=== PATIENT | male | born 1960 | race Caucasian/White ===

== ENCOUNTER 2016-08-07 18:48 | Inpatient (IN) | payer OTHER ==
[~2016-08-07] VITALS: Ht 180.3 cm; Wt 121.4 kg
--- NOTE | ~2016-08-07 | HEMODYNAMI ---
PATIENT:JOE SANCHEZ MEDICAL RECORD: [id number] : 62 LOCATION:[place] [address] ADMISSION DATE: 08/07/16 Generatedon:08/20/201611:05 Patient name: JOE SANCHEZ Patient #: [id number] SSN: : 1960 Date of study: 08/20/2016 Page: Of Hemodynamic Procedure Report Patient Data Patient Demographics Procedure consent was obtained First Name: JOE Gender: Male Last Name: LAURA : 1960 Middle Initial: ALLAN Age: 56 year(s) Patient #: [id number] Race: Unknown Additional ID: [id number] Contact details [address]: [address] [place] [address] State: [place] City: [place] Zip code: [address] Admission Admission Data Admission Date: 08/07/2016 Admission Time: 22:32 Room #: D.2120 Height (in.): 71 BSA: 2.46 (m2) Height (cm.): 180.34 BMI: 40.03 (kg/m2) Weight (lbs.): 287 Weight (kg.): 130.18 Procedure Procedure Types Cath Procedure Peripheral Cath Diagnostic Procedure Cath Peripheral Liver Liver Biopsy T-Cath Procedure Description Procedure Date Procedure Date: 08/20/2016 Procedure Start Time: 10:13 Procedure Staff Name Function Arcenio Avendaño MD Performing Physician Vincent Landeros RT Scrub Katie Blackwood RN Nurse Lynnette Quintana RT Key Worker Lynnette Quintana RT Monitor Procedure Data Cath Procedure Fluoroscopy Diagnostic fluoroscopy Total fluoroscopy Time: 10 time: 10 min min Diagnostic fluoroscopy Total fluoroscopy dose: dose: 324.8 mGy 324.8 mGy Contrast Material Contrast Material Type Amount (ml) Isovue 300 20 Procedure Medications Medication Administration Route Dosage Versed I.V. 0.5 mg Fentanyl I.V. 25 mcg Oxygen NC 3 l/min Lidocaine 1% added to field 20 Heparin Flush Bag added to field 1 bags (1000units/500ml NS) Versed I.V. 0.5 mg Fentanyl I.V. 25 mcg Oxygen NC 6 l/min Fentanyl I.V. 25 mcg Versed I.V. 0.5 mg Hemodynamics Rest BSA: 2.46 (m2) O2 Consumption: Estimated: 312.56 (ml/min) O2 Consumption indexed : Estimated:127.06 (ml/min/m) Heart Rate: 93 (bpm) Snapshots Pre Cath Intra NCS Post Cath Vital Signs Time Heart Resp SPO2 NIBP (mmHg) Rhythm Pain Sedation Rate (ipm) (%) Status Level (bpm) 9:58:25 90 12 92 170/92(132) NSR 0 (11) 10(A) , No pain 10:02:58 89 14 92 169/91(126) NSR 0 (11) 10(A) , No pain 10:07:28 91 12 92 154/91(124) NSR 0 (11) 10(A) , No pain 10:11:57 90 17 90 144/87(114) NSR 0 (11) 10(A) , No pain 10:16:21 90 9 92 151/88(115) NSR 0 (11) 10(A) , No pain 10:20:49 89 9 92 144/83(107) NSR 0 (11) 10(A) , No pain 10:25:15 89 10 90 147/85(105) NSR 0 (11) 9(A) , No pain 10:29:44 85 11 92 137/75(104) NSR 0 (11) 9(A) , No pain 10:34:06 89 9 91 140/80(100) NSR 0 (11) 9(A) , No pain 10:38:26 90 9 92 128/85(101) NSR 0 (11) 9(A) , No pain 10:42:44 87 10 92 139/85(109) NSR 0 (11) 9(A) , No pain 10:47:08 88 9 93 137/79(101) NSR 0 (11) 9(A) , No pain 10:51:31 89 9 92 147/82(102) NSR 0 (11) 9(A) , No pain 10:55:55 88 12 92 137/85(105) NSR 0 (11) 9(A) , No pain 11:00:19 87 12 93 134/79(104) NSR 0 (11) 10(A) , No pain 11:04:39 87 24 94 127/82(97) NSR 0 (11) 10(A) , No pain Medications Time Medication Route Dose Verified Delivered Reason Notes Effe ctiveness by by 9:58:00 Oxygen NC 3 Katie Katie Per l/min King MIKI Blackwood RN protocol 9:58:10 Lidocaine 1% added 20ml Katie Katie for local to vial King MIKI Blackwood RN anesthetic field 9:58:20 Heparin Flush added 1 Katie Katie used for Bag to bags King MIKI Blackwood horse riding coach or instructor (1000units/500ml field NS) 10:12:01 Oxygen NC 6 Katie Katie Per l/min King MIKI Blackwood RN protocol 10:12:50 Versed I.V. 0.5 Katie Katie for mg King MIKI Blackwood RN sedation 10:12:50 Fentanyl I.V. 25 Katie Katie for mcg King MIKI Blackwood RN sedation 10:17:46 Versed I.V. 0.5 Katie Katie for mg King MIKI Blackwood RN sedation 10:17:51 Fentanyl I.V. 25 Katie Katie for mcg King MIKI Blackwood RN sedation 10:44:11 Fentanyl I.V. 25 Katie Katie for mcg King MIKI Blackwood RN sedation 10:44:23 Versed I.V. 0.5 Katie Katie for mg King MIKI Blackwood RN sedation Procedure Log Time Note 9:45:14 Patient Weight : 287 lbs 9:45:16 Patient Height : 71 inches 9:45:50 Time tracking: Regular hours 9:46:03 - 9:46:14 Use device set IR Diagnostic 9:46:15 Sterile Angiographic Pack opened to sterile field. 9:46:16 Bag Decanter opened to sterile field. 9:46:59 [id number] 8FR CATH DRAIN TRAY opened to sterile field. 9:47:50 H&P Date Dictated: 08/20/2016 Within 30 days and on chart.. 9:47:53 Pre-procedure instructions explained to patient. 9:47:54 Pre-op teaching completed and patient verbalized understanding. 9:47:58 Family in waiting room. 9:48:00 Patient NPO since Midnight. 9:48:15 Is the patient allergic to Iodine/contrast media? No. 9:48:19 Is patient on blood thinner?Yes 9:48:24 Patient diabetic? Yes. 9:55:32 KIT LIVER ACCESS BIOPSY W/19GX6 opened to sterile field. 9:56:19 KIT, TRANSJUGULAR LIVER ACCESS R opened to sterile field. 9:56:31 - 9:56:38 Plan of Care:Hemodynamics will remain stable., Cardiac rhythm will remain stable., Comfort level will be maintained., Respiratory function will remain adequate., Patient/ family verbilizes understanding of procedure., Procedure tolerated without complication., Recovers from procedure without complications.. 9:56:46 Patient received from [place] II to IR Alert and oriented. Tansferred to table in Supine position. 9:56:48 Correct patient and procedure confirmed by team. 9:56:50 Signed procedure consent form obtained from patient. 9:56:51 ECG and BP/O2 sat monitors applied to patient. 9:56:52 Vital chart was started 9:56:54 Baseline sample Acquired. 9:56:55 Full Disclosure recording started 9:56:56 - 9:57:03 ----Pre-sedation anethsthesia assessment.---- 9:57:07 Previous problem with sedation/anesthesia? No ? 9:57:10 Snore? Yes 9:57:12 Sleep apnea? Yes 9:57:27 Deviated septum? No 9:57:29 Opens mouth fully? Yes 9:57:31 Sticks out tongue? Yes 9:57:34 Airway obstruction? No ? 9:57:39 Dentures? No ? 9:57:40 - 9:58:00 Oxygen 3 l/min NC was given by Katie Blackwood RN; Per protocol; 9:58:10 Lidocaine 1% 20ml vial added to field was given by Katie Blackwood RN; for local anesthetic; 9:58:10 IV patent on arrival in right hand with 0.9% NaCl at [facility]. 9:58:20 Heparin Flush Bag (1000units/500ml NS) 1 bags added to field was given by Katie Blackwood RN; used for procedure; 9:58:22 Right abdomen area was prepped with chlora-prep and draped in sterile fashion 9:58:29 Right neck area was prepped with chlora-prep and draped in sterile fashion 9:58:35 Alarms reviewed by Adrienne Rico 9:58:36 Sharps counted by scrub and verified by Jessica 9:58:37 - 10:11:32 Physician arrived 10:12:01 Oxygen 6 l/min NC was given by Katie Blackwood RN; Per protocol; 10:12:04 --------ALL STOP TIME OUT------ 10:12:05 Final Timeout: patient, procedure, and site verified with staff and physician. All members of the team are in agreement. 10:12:24 Right neck site verified by team. 10:12:31 Right abdomen site verified by team. 10:12:36 Physical assessment completed. ASA score P 3 - A patient with severe systemic disease as per Arcenio Avendaño MD. 10:12:42 Sedation plan: IV Moderate Sedation Versed, Fentanyl 10:12:50 Fentanyl 25 mcg I.V. was given by Katie Blackwood RN; for sedation; 10:12:50 Versed 0.5 mg I.V. was given by Katie Blackwood RN; for sedation; 10:13:07 Procedure started. 10:13:15 Local anesthetic to Abdominal area with Lidocaine 1% by Arcenio Avendaño MD.INITIAL ACCESS ONLY 10:16:58 Cook DOC .035 guide wire opened to sterile field. 10:17:46 Versed 0.5 mg I.V. was given by Katie Blackwood RN; for sedation; 10:17:51 Fentanyl 25 mcg I.V. was given by Katie Blackwood RN; for sedation; 10:19:41 PERCUTANEOUS ENTRY 19GA needle opened to sterile field. 10:24:53 unable to obtain fluid on paracentesis 10:27:19 Local anesthetic to right IJ vein with Lidocaine 1% by Arcenio Avendaño MD.ADDITIONAL ACCESS 10:27:21 Venous access obtained using ultrasound guidance. 10:28:[address] .035 145 glide wire opened to sterile field. 10:31:43 Terumo 5FR ANGLED 100CM glide catheter opened to sterile field. 10:44:11 Fentanyl 25 mcg I.V. was given by Katie Blackwood RN; for sedation; 10:44:23 Versed 0.5 mg I.V. was given by Katie Blackwood RN; for sedation; 10:56:24 liver bx obtained 11:00:24 Procedure ended.(Physican Out) 11:00:53 Fluoroscopy time 10.00 minutes. 11:01:04 Flurop Dose total: 324.8 11:01:04 Fluoroscopy dose: 324.8 mGy 11:01:52 Contrast amount:Isovue 300 20ml. 11:02:21 Procedure and supply charges have been captured, reviewed, submitted an d are correct. 11:05:31 Vital chart was stopped Device Usage Item Name Manufacture Quantity Catalog Hospital Part Current Mini mal Lot# / Number Charge Number Stock Stock Serial# Code Sterile Cardinal 1 [id number] 5 Angiographic Health Pack Bag Decanter Microtek 1 [id number] [employer] [id number] [employer] 1 [id number] [id number] 5 8FR CATH DRAIN TRAY KIT LIVER [facility] 1 [id number] [id number] 5 ACCESS BIOPSY W/19GX6 KIT, [facility] 1 [id number] 169958 5 TRANSJUGULAR LIVER ACCESS R [place] DOC .035 [facility] 1 [id number] 748346 [id number] 5 [id number] guide wire PERCUTANEOUS [facility] 1 [id number] 523100 [id number] 5 ENTRY 19GA needle [place] ROADRUNNER [facility] 1 [id number] 828498 5 [id number] .035 145 glide wire Terumo 5FR Terum[employer] 1 [id number] [id number] 4 ANGLED 100CM glide catheter Signature Audit Edroy Stage Time Signature Unsigned Intra-Procedure 08/20/2016 Lynnette Quintana 11:05:28 AM RT(R) Signatures Monitor : Lynnette Quintana RT Signature : Date : Time : [place] [address] [place] [address]
[2016-08-07 19:59] LABS: BASOPHILS 0.3 % (0.0-2.0); EOSINOPHILS 0.1 % (0-7); HEMATOCRIT 54.5 % (42.0-54.0); IMMATURE GRANULOCYTES 0.8 % (0-5); LYMPHOCYTES 19.8 % (15-50); MCH 31.6 pg (26.0-34.0); MCHC 34.9 g/dL (31.0-37.0); MCV 90.5 fL (80.0-100.0); MEAN PLATELET VOLUME 10.9 fL (7.4-10.4); MONOCYTES 9.5 % (2-11); NEUTROPHILS 69.5 % (40-80); PLATELET COUNT 61 10x3/uL (130-400); RBC 6.02 10x6/uL (4.20-6.10); RDW 15.5 % (11.5-14.5); WBC 7.7 10x3/uL (4.8-10.8)
[2016-08-07 20:26] LABS: PLATELET ESTIMATE DECREASED
[2016-08-07 20:27] LABS: ALBUMIN 3.5 g/dL (3.4-5.0); ANION GAP 16.2 mmol/L (8-16); BILIRUBIN - TOTAL 1.24 mg/dL (0.2-1.3); CALCIUM 8.7 mg/dL (8.5-10.1); CARBON DIOXIDE 21.8 mmol/L (21.0-32.0); CREATININE - SERUM 2.1 mg/dL (0.6-1.3); PROTEIN - SERUM 7.7 g/dL (6.4-8.2)
[2016-08-07 21:16] LABS: APTT 42.8 SECONDS (22.8-39.4); INR 1.54 (0.85-1.17); PROTIME 18.5 SECONDS (11.6-15.0)
[2016-08-07 21:17] LABS: D-DIMER-QUANTITATIVE 0.39 ug/mLFEU (0.20-0.54)
[2016-08-07 21:19] LABS: TROPONIN-I 0.069 ng/mL (0.000-0.060)
[2016-08-07 21:35] LABS: APPEARANCE HAZY (CLEAR); BILIRUBIN NEGATIVE (NEGATIVE); COLOR DK YELLOW (YELLOW); EPITHELIAL CELLS RARE /hpf (0-5); GLUCOSE NEGATIVE (NEGATIVE); KETONE NEGATIVE (NEGATIVE); LEUKOCYTE ESTERASE NEGATIVE (NEGATIVE); NITRITE NEGATIVE (NEGATIVE); PROTEIN 2+ mg/dL (NEGATIVE); SPECIFIC GRAVITY 1.015 (1.005-1.020); UROBILINOGEN NORMAL (NORMAL); WHITE CELLS - URINE 0-5 /hpf (0-5)
[2016-08-07 21:41] LABS: UDS - AMPHET NEGATIVE QUAL (NEGATIVE); UDS - BARB NEGATIVE QUAL (NEGATIVE); UDS - BENZO NEGATIVE QUAL (NEGATIVE); UDS - COCAINE NEGATIVE QUAL (NEGATIVE); UDS - METH NEGATIVE QUAL (NEGATIVE); UDS - OPIATE NEGATIVE QUAL (NEGATIVE); UDS - PCP NEGATIVE QUAL (NEGATIVE); UDS - THC NEGATIVE QUAL (NEGATIVE)
[2016-08-07 22:41] LABS: KETONE - SERUM SMALL mg/dL (NEGATIVE)
[2016-08-07 22:42] LABS: AMYLASE - SERUM 62 U/L (25-115); CKMB 3.9 U/L (0.0-3.6); CREATINE KINASE 168 UL (21-232); LIPASE 366 U/L (73-393); THYROID STIMULATING HORMONE 2.53 uIU/mL (0.36-3.74); VALPROIC ACID (DEPAKOTE) 12.6 ug/mL (50.0-100.0)
[2016-08-07 22:43] LABS: TROPONIN-I 0.093 ng/mL (0.000-0.060)
--- NOTE | 2016-08-07 23:25 | NUR ---
ARRIVED TO ROOM 2306 VIA STRETCHER WITH E.R. STAFF. TRANSFERRED OVER VIA SLIDE BOARD WITH 4 ASSISTING. CONNECTED TO CARDIAC MONITORING SYSTEM. SINUS TACHYCARDIA IN THE 100'S ON THE MONITOR. B/P LOW 90'S SYSTOLIC. O2 @ 3LPM/NC. DENIES CHEST PAIN CURRENTLY. REPORTS PAIN ON BOTH SHOULDERS FROM FALL TONIGHT. PUPILS DILATED AT A 6MM AND SLUGGISH TO LIGHT BILATERALLY. STARES OFF INTO THE DISTANCE AND DOES NOT ANSWER QUESTIONS FOR SHORT PERIODS OF TIME. GETS FLUSHED IN THE FACE AND SLIGHTLY CYANITIC TO LOWER EARLOBES. BILATERAL LE'S EDEMA WITH DISCOLORATION. ONE BANDAID NOTED TO EACH LOWER LEG FROM FALLING TONIGHT. 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 SEE ADMISSION ASSESSMENT FOR FURTHER DETAILS. INFORMED OF HOW TO USE CALL LIGHT. VERBALIZED UNDERSTANDING.
[2016-08-07] MEDS ORDERED: FENOGLIDE40 MG PO (23:26)
[2016-08-07] MEDS ORDERED: DEPAKOTE SPRIN125 MG PO (23:26)
[2016-08-07] MEDS ORDERED: FLOVENT DISKU250 MCG INH (23:27)
[2016-08-07] MEDS ORDERED: GINGER500 MG PO (23:28)
[2016-08-07] MEDS ORDERED: GABAPENTIN100 MG PO (23:28)
[2016-08-07] MEDS ORDERED: ABILIFY2 MG PO (23:29)
[2016-08-07] MEDS ORDERED: VENTOLIN/PR2 MG/5 ML PO (23:29)
[2016-08-07 23:30] VITALS: BP 105/77
[2016-08-07] MEDS ORDERED: MYCELEX TROCHE10 MG PO (23:31)
[2016-08-07] MEDS ORDERED: LIPITOR20 MG PO (23:31)
[2016-08-07] MEDS ORDERED: PULMICORT0.25 MG/1 INH (23:31)
[2016-08-07 23:45] VITALS: BP 81/50
[2016-08-07 23:52] VITALS: BP 91/66; BMI 37.4
[2016-08-08] VITALS (32 sets, daily range): BP systolic 84–172; BP diastolic 49–101
--- NOTE | 2016-08-08 00:15 | NUR ---
INCONTINENT OF URINE. SHEETS A DARK LOREN COLOR. PARTIAL BATH GIVEN AND INCONTINENT BRIEF PLACED ON AND HE WEARS THESE AT HOME. SKIN WNL TO POSTERIOR SIDE. PULLED UP IN BED AND REPOSITIONED FOR COMFORT.
--- NOTE | 2016-08-08 00:20 | NUR ---
SPOKE WITH DR. COLBY REGARDING MULTIPLE FALLS. NEW ORDERS RECEIVED.
--- NOTE | 2016-08-08 00:40 | NUR ---
TAKEN OVER TO RAD DEPT FOR CT HEAD WITHOUT CONTRAST VIA BED.
--- NOTE | 2016-08-08 01:00 | NUR ---
[facility] AND RECONNECTED TO CONTINUOUS CARDIAC MONITORING.
--- NOTE | 2016-08-08 01:15 | NUR ---
HERE AND LET IN TO SEE PATIENT. UPDATE GIVEN ON RECENT CT OF HEAD AND AWAITING RESULTS. PATIENT REPORTS THE SHAKING TYPE TREMORS ARE OF NEW ONSET SINCE FALL IN BATHROOM TONIGHT. ALSO REPORTS HIS "EYES WERE BLACK", "COULD NOT SEE HIS IRIS". ALSO DOES REPORT THE NEW ONSET OF STARING OFF IN THE DISTANCE IS NEW FOR HIM. HAS HOME CPAP MACHINE FROM HOME SHE IS RETRIEVING FROM THE VEHICLE. WILL MONITOR.
--- NOTE | 2016-08-08 01:45 | NUR ---
CALLED ER AND INFORMED NEED TO GIVEN RESULTS TO DR. COLBY OF CT HEAD. PERSON ANSWERING PHONE AWARE A OF RESULTS.
--- NOTE | 2016-08-08 02:50 | NUR ---
SPOKE WITH DR. PERDOMO VIA PHONE REGARDING WHETHER TO FOLLOW HEPARIN PROTOCOL FOR HEPARIN GTT. INFORMED TO FOLLOW PROTOCOL. INFORMED OF LACTIC ACID AND TROPONIN LEVEL. WILL MONITOR.
--- NOTE | 2016-08-08 03:45 | NUR ---
REASSESSMENT COMPLETED. SEE ASSESSMENT. LAYING ON RT SIDE. REPORTS PAIN HAS LESSENED SOME TO SHOULDER AREA. READJUSTED B/P CUFF ON LEFT ARM. ANSWERS QUESTIONS APPROPRIATELY. IMMEDIATELY CLOSES EYES WHEN NOT STIMULATED AND CLOSES EYES. NSR ON THE MONITOR. WILL MONITOR.
[2016-08-08 04:21] LABS: BASOPHILS 0.2 % (0.0-2.0); EOSINOPHILS 0.1 % (0-7); HEMATOCRIT 54.3 % (42.0-54.0); HEMOGLOBIN 18.5 g/dL (13.5-17.5); IMMATURE GRANULOCYTES 1.2 % (0-5); LYMPHOCYTES 29.2 % (15-50); MCH 30.3 pg (26.0-34.0); MCHC 34.1 g/dL (31.0-37.0); MCV 88.9 fL (80.0-100.0); MEAN PLATELET VOLUME 10.5 fL (7.4-10.4); MONOCYTES 14.2 % (2-11); NEUTROPHILS 55.1 % (40-80); PLATELET COUNT 66 10x3/uL (130-400); RBC 6.11 10x6/uL (4.20-6.10); RDW 15.9 % (11.5-14.5); WBC 9.4 10x3/uL (4.8-10.8)
[2016-08-08 04:50] LABS: ALBUMIN 3.3 g/dL (3.4-5.0); BILIRUBIN - TOTAL 1.23 mg/dL (0.2-1.3); CALCIUM 8.1 mg/dL (8.5-10.1); CARBON DIOXIDE 22.9 mmol/L (21.0-32.0); PROTEIN - SERUM 7.4 g/dL (6.4-8.2)
[2016-08-08 04:53] LABS: ANION GAP 16.8 mmol/L (8-16); CREATININE - SERUM 2.7 mg/dL (0.6-1.3); POTASSIUM - SERUM 6.7 mmol/L (3.5-5.1); TROPONIN-I 0.888 ng/mL (0.000-0.060)
--- NOTE | 2016-08-08 04:55 | NUR ---
DR. BOWIE RETURNED PAGE. INFORMED OF CRITICAL POTASSIUM, TROPONIN LEVEL, PAIN LEVEL AND WHERE, BUN/CREAT, PLTS LEVEL. ORDERS RECEIVED.
--- NOTE | 2016-08-08 05:35 | NUR ---
PO KAYEXALATE GIVEN ORDERED. TOOK WITHOUT DIFFICULTY. WILL MONITOR.
--- NOTE | 2016-08-08 06:11 | NUR ---
DR. SWANSON MADE AWARE OF RENAL CONSULT VIA PHONE.
[2016-08-08 10:03] LABS: APPEARANCE CLOUDY (CLEAR); BILIRUBIN 1+ (NEGATIVE); COLOR DK YELLOW (YELLOW); GLUCOSE NEGATIVE (NEGATIVE); KETONE NEGATIVE (NEGATIVE); LEUKOCYTE ESTERASE 1+ (NEGATIVE); NITRITE NEGATIVE (NEGATIVE); PROTEIN 3+ mg/dL (NEGATIVE)
[2016-08-08 10:04] LABS: AMORPHOUS SEDIMENT <1+ /lpf (NONE SEEN); BACTERIA MANY /hpf (NONE SEEN); CREATININE - URINE 271.9 mg/dL (30-125); GRANULAR CAST OCC /lpf (NONE SEEN); MUCUS <1+ /lpf (NONE SEEN); RED CELLS - URINE 0-5 /hpf (0-5); WHITE CELLS - URINE 0-5 /hpf (0-5)
[2016-08-08 10:05] LABS: PROTEIN - URINE 2198.8 mg/dL (0.0-11.9)
[2016-08-08 10:40] LABS: ANION GAP 15.7 mmol/L (8-16); CALCIUM 8.4 mg/dL (8.5-10.1)
[2016-08-08 10:46] LABS: POTASSIUM - SERUM 4.7 mmol/L (3.5-5.1)
[2016-08-08 18:34] LABS: POTASSIUM - URINE 45.6 MMOL/L (12.0-62.0)
[2016-08-08 18:40] LABS: CREATININE - URINE 269.5 mg/dL (30-125); PRO/CRE RATIO URINE 8.1 mg/g; PROTEIN - URINE 2196.2 mg/dL (0.0-11.9)
--- NOTE | 2016-08-08 19:15 | NUR ---
REPORT RECIEVED, SHIFT ASSESSMENT COMPLETE, PT IS ALERT AND ORIENTED, ON 3L NC WITH 98% O2 SAT. RHONCHI HEARD IN B/L UPPER LOBES, DIMINISHED IN B/L LOWER LOBES, S1S2, CM-ST, PATENT RIGHT A/C PIV WITH NS INFUSING VIA PUMP, ABDOMEN IS DISTENDED WITH HYPO BS, PATENT F/C WITH DARK UOP, EDEMA NOTED IN ALL EXTREMTIES, ALL PPP, VSS, CALL LIGHT IN REACH
--- NOTE | 2016-08-08 21:15 | NUR ---
NO VISITORS AT THIS TIME, WILL CON'T TO MONITOR
--- NOTE | 2016-08-08 23:16 | NUR ---
REASSESSMENT COMPLETE, PT RESTING AT THIS TIME, WILL CON'T TO MONITOR
--- NOTE | 2016-08-08 23:20 | NUR ---
UPDATE CALLED TO DR.ST YEH, NEW ORDERS RECIEVED
[2016-08-09] VITALS (18 sets, daily range): BP systolic 100–165; BP diastolic 58–101; Ht 180.3 cm; Wt 121.4 kg
--- NOTE | 2016-08-09 01:15 | NUR ---
NO NEEDS NOTED, WILL CON'T TO MONITOR
--- NOTE | 2016-08-09 03:05 | NUR ---
REASSESSMENT COMPLETE, NO CHANGES NOTED, PT RESTING AT THIS TIME, CALL LIGHT IN REACH
[2016-08-09 04:45] LABS: BASOPHILS 0.7 % (0.0-2.0); EOSINOPHILS 0.8 % (0-7); HEMATOCRIT 49.3 % (42.0-54.0); HEMOGLOBIN 16.4 g/dL (13.5-17.5); IMMATURE GRANULOCYTES 0.2 % (0-5); MCHC 33.3 g/dL (31.0-37.0); MCV 90.3 fL (80.0-100.0); MEAN PLATELET VOLUME 11.9 fL (7.4-10.4); MONOCYTES 12.6 % (2-11); NEUTROPHILS 56.7 % (40-80); RBC 5.46 10x6/uL (4.20-6.10)
[2016-08-09 04:48] LABS: PLATELET COUNT 50 10x3/uL (130-400); WBC 6.1 10x3/uL (4.8-10.8)
[2016-08-09 04:52] LABS: ANION GAP 15.2 mmol/L (8-16); CALCIUM 8.2 mg/dL (8.5-10.1); CARBON DIOXIDE 24.4 mmol/L (21.0-32.0); CREATININE - SERUM 1.7 mg/dL (0.6-1.3); POTASSIUM - SERUM 4.6 mmol/L (3.5-5.1)
--- NOTE | 2016-08-09 05:00 | NUR ---
PT RESTING AT THIS TIME, NO NEEDS NOTED, WILL CON'T TO MONITOR
[2016-08-09 09:19] LABS: COMPLEMENT C4 2.4 mg/dL (17.4-52.2)
[2016-08-09 11:05] LABS: ERYTHROCYTE SEDIMENTATION RATE 0 mm/hr (0-20)
--- NOTE | 2016-08-09 15:20 | NUR ---
0800 AM ASSESMENT IS COMPLETE.. SEE FLOW SHEET FOR FINDINGS.. PT IS SLEEPIING WITH HOME CPAP ON.. PIV INFUSNG INTO THE LEFT AC... 0845 DR SWANSON IN TO SEE PT.. 0900 WIHTOUT VISITORS AT THIS TIME.. NPO FOR POSSIBLE CATH 1030 ECHO DONE AT THE BEDSIDE.. PT STAES THAT HE IS HUNGRY.. PERSONAL INJURY LAW SPECIALIST CALLED AND CARDIOLOGY REQUEST RE DIET.. PT NOT SCEDULED FOR CATH TODAY OK FOR MEAL TRAY.. 1100 SANDSWICH TRAY OFFERED TO PT AND PT S FEEDING SELF. 1145 LARGE SOFT STICKY BROWN STOOL IN BEDPAN.. COMPLETE BATH AND LINEN CHANGE DONE.. SALDANA CATH CARE AT THIS TIME.. 1200 LUNCH SERVED AND PT IS FEEDING SELF.. 1330 PIV RE SITED INTO THE RIGHT FOREARM 20 GA.. LEFT AC PIV DCd.. 1330 DR MIRELES IN TO SEE PT.. OK TO TRANSFER TO THE FLOOR.. 1500 WIHTOUT VISITOTRS PPT STATES PAIN IN BACK STATES THAT HE TAKES OXYCODONE AT HOME.. MED NOT ON HOME MED LIST PT STATES TO CALL HIS ..
--- NOTE | 2016-08-09 15:55 | NUR ---
1540 [place] CALLED AND MED RECORDS TO FAX CURRENT MED LIST FOR PT..
[2016-08-09] MEDS ORDERED: ABILIFY20 MG PO (17:03)
[2016-08-09] MEDS ORDERED: BAYER CHEWABLE81 MG PO (17:04)
[2016-08-09] MEDS ORDERED: PULMICORT FLEX90 MCG INH (17:06)
[2016-08-09] MEDS ORDERED: CLOTRIM ANTIFUN15 GM TOPICAL (17:07)
[2016-08-09] MEDS ORDERED: DEPAKOTE ER500 MG PO (17:10)
[2016-08-09] MEDS ORDERED: NEURONTIN 400400 MG PO (17:11)
[2016-08-09] MEDS ORDERED: GLIPIZIDE10 MG PO (17:12)
[2016-08-09] MEDS ORDERED: HYDROCODONE-APA1 TAB PO (17:14)
[2016-08-09] MEDS ORDERED: EUCERIN CREAM120 GM TOPICAL (17:16)
[2016-08-09] MEDS ORDERED: LANTUS INSULIN10 ML SC (17:18)
[2016-08-09] MEDS ORDERED: NIZORAL 2 % CRE15 GM TOPICAL (17:19)
[2016-08-09] MEDS ORDERED: ZESTRIL40 MG PO (17:20)
[2016-08-09] MEDS ORDERED: LATUDA40 MG PO (17:21)
[2016-08-09] MEDS ORDERED: METOPROLOL TAR100 M1 PO (17:21)
[2016-08-09] MEDS ORDERED: OMEPRAZOLE20 M1 PO (17:22)
[2016-08-09] MEDS ORDERED: DITROPAN X10 MG/BOTT PO (17:23)
[2016-08-09] MEDS ORDERED: SYSTANE 0.3-0.4%5 ML EACH EYE (17:24)
[2016-08-09] MEDS ORDERED: EFFEXOR XR150 MG PO (17:25)
--- NOTE | 2016-08-09 18:23 | NUR ---
1645 DR MIRELES CALLED AND UPDATE GIVEN ABOUT MED LLIST.. 1700 DIET SERVED.. 1730 REQUEST PAIN MEDS.. 1800 [facility] VISITORS.. 1820 MEDS ARNOLDO..
--- NOTE | 2016-08-09 19:00 | NUR ---
RECEIVED PATIENT IN BED AWAKE ON HOME CPAP UNIT, ASSESSMENT COMPLETE PER FLOWSHEET. AO X4, EYES PERRLA @ 4MM WITH BRISK RESPONSE AND WHITE SCLERA. PATIENT ON HOME CPAP UNIT @ 3L VIA NASAL MASK, TONGUE IS MIDLINE. S1/S2 NOTED WITH PATIENT NSR ON TELEMETRY, RATE IS REGULAR AND RYTHMIC. LUNG SOUNDS ARE CLEAR BILATERAL UPPER WITH DIMINISHED LOWER, RATE IS RYTHMIC AND REGULAR. ABDOMEN IS ROUND AND SOFT, NON-TENDER TO PALPATION. SALDANA SECURED IN PLACE WITH DARK CONCENTRATED URINE NOTED IN COLLECTION BAG. FULL ROM ALL EXTREMITIES, WITH NO WEAKNESS NOTED IN ARMATURE WINDER REPAIR/PEDAL. ALL PULSES PALPABLE, CAP REFILL <3 SEC. 20G IV NOTED R FA WITH FLUIDS INFUSING, SEE FLOW SHEET. WAITING ON PHARMACY TO DELIVER EFFEXOR, WILL ADMINISTER WHEN AVAILABLE. PATIENT DENIES PAIN OR OTHER NEEDS AT THIS TIME, REPOSITIONED FOR COMFORT. WILL CONTINUE TO MONITOR.
--- NOTE | 2016-08-09 20:39 | NUR ---
Late Entry 1545 TC to ER to ascertain if [facility] patient's admission. No documentation found. TC to Bed Expeditor's office. Spoke w/ Mavis. She states they had been notified. CM provided admitting MD's name and contact phone number also provided ICU contact phone number for information if needed.
--- NOTE | 2016-08-09 21:00 | NUR ---
NO VISITORS AT THIS TIME, PATIENT RESTING IN BED WITH EYES CLOSED ON HOME CPAP. BEDTIME MEDS GIVEN WITH NO DIFFICULTIES, PATIENT RETURNED TO RESTING. PATIENT DENIES PAIN OR OTHER NEEDS AT THIS TIME, WILL CONTINUE TO MONITOR.
--- NOTE | 2016-08-09 23:00 | NUR ---
PATIENT RESTING COMFORTABLY IN BED WITH EYES CLOSED ON HOME CPAP @ 3L. PATIENT NSR ON TELEMETRY, RATE IS RYTHMIC AND REGULAR. PATIENT HAS XFER ORDERS IN PLACE, AWAITING BED ON FLOOR OR [facility]. PATIENT DENIES PAIN OR OTHER NEEDS AT THIS TIME, ALL VSS AND WILL CONTINUE TO MONITOR.
[2016-08-10] VITALS (11 sets, daily range): BP systolic 98–146; BP diastolic 68–98
--- NOTE | 2016-08-10 01:00 | NUR ---
PATIENT IS RESTING IN BED WITH EYES CLOSED ON HOME CPAP @ 3L. BREATHING IS EVEN AND UNLABORED, OXYGEN SAT IS 96%. PATIENT IS NSR ON TELEMETRY, RATE IS RYTHMIC AND REGULAR. PATIENT DENIES PAIN OR OTHER NEEDS AT THIS TIME, ALL VSS AND WILL CONTINUE TO MONITOR.
--- NOTE | 2016-08-10 02:52 | NUR ---
PATIENT C/O PAIN 6/10 GENERALIZED/UPPER SHOULDER, PRN MEDICATION GIVEN AND WILL REASSESS. PATIENT RESTING IN BED WITH EYES CLOSED ON HOME CPAP @ 3L, BREATHING IS EVEN AND UNLABORED. PATIENT DENIES OTHER NEEDS AT THIS TIME, JUST "WANTS TO REST A WHILE". ALL VSS AND WILL CONTINUE TO MONITOR.
[2016-08-10 04:21] LABS: BASOPHILS 0.4 % (0.0-2.0); EOSINOPHILS 1.9 % (0-7); HEMATOCRIT 49.8 % (42.0-54.0); HEMOGLOBIN 16.2 g/dL (13.5-17.5); IMMATURE GRANULOCYTES 0.4 % (0-5); MCH 30.3 pg (26.0-34.0); MCHC 32.5 g/dL (31.0-37.0); MONOCYTES 12.8 % (2-11); NEUTROPHILS 48.5 % (40-80); RBC 5.35 10x6/uL (4.20-6.10); WBC 5.3 10x3/uL (4.8-10.8)
[2016-08-10 04:22] LABS: MCV 93.1 fL (80.0-100.0); PLATELET COUNT 48 10x3/uL (130-400)
[2016-08-10 04:26] LABS: ANION GAP 12.7 mmol/L (8-16); CALCIUM 8.4 mg/dL (8.5-10.1); CARBON DIOXIDE 27.8 mmol/L (21.0-32.0); CREATININE - SERUM 1.6 mg/dL (0.6-1.3); POTASSIUM - SERUM 4.5 mmol/L (3.5-5.1)
--- NOTE | 2016-08-10 05:01 | NUR ---
PATIENT RESTING IN BED WITH EYES CLOSED, BP CUFF MOVED TO PT L BICEP WITH BP READINGS NOW CLOSER TO EXPECTED. HOME CPAP IN USE @ 3L, BREATHING IS EFFORTLESS AND EVEN. PATIENT DENIES PAIN OR OTHER NEEDS AT THIS TIME, ALL VSS AND WILL CONTINUE TO MONITOR.
[2016-08-10 10:20] LABS: ANA REFLEX - ANTICHROMATIN ABS <0.2 AI (0.0-0.9); ANA REFLEX - CENTROMERE B ABS <0.2 AI (0.0-0.9); ANA REFLEX - DBL STRANDED DNA <1 IU/mL (0-9); ANA REFLEX - DIRECT Positive (Negative); ANA REFLEX - JO-1 AB <0.2 AI (0.0-0.9); ANA REFLEX - SCL-70 <0.2 AI (0.0-0.9); ANA REFLEX - SJOGRENS AB SSA <0.2 AI (0.0-0.9); ANA REFLEX - SJOGRENS AB SSB <0.2 AI (0.0-0.9); ANA REFLEX - SMITH AB <0.2 AI (0.0-0.9)
--- NOTE | 2016-08-10 10:53 | NUR ---
Is the patient Alert and Oriented? Yes 0 * How many steps to enter\exit or inside your home? RAMP 0 * PCP [facility] 0 * Pharmacy [facility] OR IMMEDIATE RX FROM [facility] 0 * Preadmission Environment Home with Family 0 * ADLs Independent 0 * Equipment Cane CPAP Walker 0 * Other Equipment PATIENT HAS HOME CPAP, CANE AND WALKER ALL PROVIDED BY THE [facility]. 0 * List name and contact numbers for known caregivers / representatives who currently or will assist patient after discharge: SPOUSE: SOPHIE [phone] 0 * Community resources currently utilized None 0 * Additional services required to return to the preadmission environment? No 0 * Can the patient safely return to the preadmission environment? Yes 0 * Has this patient been hospitalized within the prior 30 days at any hospital? No PATIENT STATES HE LIVES AT HOME WITH HIS , SOPHIE. HE STATES SHE WILL BE AVAILABLE TO DRIVE HIM HOME AT DISCHARGE. HIS PCP IS KOKO TANG AT THE [facility]. HE GETS MEDS FROM THE [facility] BUT IMMEDIATE NEEDS HE GETS FROM [facility]. PTIENT HAS CPAP, WALKER, AND A CANE PROVIDED BY BY THE [facility]. HE STATES HE THINKS HE WILL NEED O2 AT DISCHARGE. PATIENT DENIES EVER HAVING HOME HEALTH. PATIENT STATES THERE IS A RAMP TO ENTER HIS HOME. PATIENT MAY NEED O2 SET UP AT DISCHARGE. CM TO FOLLOW.
--- NOTE | 2016-08-10 12:53 | NUR ---
0800 AM ASSESMENT IS COMPLETE SEE FLOW SHSEET FOR FINDINGS.. PT IS AWAKE AND BREAKFAST IS SERVED. FEEDING SELF.. 0900 WITHOUT VISITOR AT THIS TIME.. MEDS GVIEN.. 1100 NO CHANGES PT IS RESTING QUIETLY WITH EYES CLOSED 1200 NO VISITORS AT THIS TIME.. 1230 DR SWANSON IN TO SEE PT.. UPDATE IS GIVEN..
--- NOTE | 2016-08-10 13:15 | NUR ---
I PHONED THE MS EXPEDITOR, TAI TO UPDATE. PATIENT IS CLEARED BY NEPHROLOGY FOR CATH. CATH PENDING UNTIL SEEN BY CARDIOLOGY. THEY ARE DOCUMENTING IT IS UNKNOWN IF PATIENT WANTS TO TRANSFER. TAI STATES TO LET THEM KNOW IF PATIENT DEFINITELY WANTS TO TRANSFER OR DEFINITELY DOES NOT WANT TO TRANSFER. SHE STATES IF SHE DOCUMENTS PATIENT REFUSES TRANSFER HE MAY HAVE TO PAY HIS HOSPITAL BILL. WILL UDATED IN A FEW DAYS. CM TO FOLLOW.
[2016-08-10 16:14] LABS: SPE - ALBUMIN 3.3 g/dL (2.9-4.4); SPE - ALPHA-1 GLOBULIN 0.2 g/dL (0.0-0.4); SPE - ALPHA-2 GLOBULIN 0.4 g/dL (0.4-1.0); SPE - BETA GLOBULIN 1.1 g/dL (0.7-1.3); SPE - GAMMA GLOBULIN 1.5 g/dL (0.4-1.8); SPE - M-SPIKE Not Observed g/dL (Not Observed); SPE - TOTAL PROTEIN 6.6 g/dL (6.0-8.5)
--- NOTE | 2016-08-10 16:26 | NUR ---
1330 REQUESTING BREATHING TX.. RT CALLED.. 1400 DR MIRELES CALLED [facility] FOR UP TX.. 1430 RT IN TO DO UD.. 1500 AND SON VISITING.. 1545 DR MIRELES IN TO SEE PT AND UPDATE GIVEN..
--- NOTE | 2016-08-10 17:20 | NUR ---
1715 DIET SERVED TO PT AND PT IS FEEDING SELF.. MEDS GIVEN..
--- NOTE | 2016-08-10 17:49 | NUR ---
[id number]E..
--- NOTE | 2016-08-10 19:00 | NUR ---
REPORT RECEIVED AND ASSESSMENT COMPLETED. SEE ASSESSMENT FOR FULL DETAILS. PT ON HOME CPAP MACHINE. NS @ 75 IN RIGHT FOREARM. VSS. WILL MONITOR.
--- NOTE | 2016-08-10 23:00 | NUR ---
FAMILY VISITED AT 2100. PT NOW RESTING CALMLY IN ROOM ON PHONE. NO OTHER CHANGES AT THIS TIME. VSS. WILL CONTINUE TO MONITOR.
[2016-08-11] VITALS (7 sets, daily range): BP systolic 106–139; BP diastolic 75–94
[2016-08-11 04:55] LABS: BASOPHILS 0.5 % (0.0-2.0); EOSINOPHILS 1.7 % (0-7); HEMATOCRIT 47.8 % (42.0-54.0); HEMOGLOBIN 15.4 g/dL (13.5-17.5); IMMATURE GRANULOCYTES 0.2 % (0-5); LYMPHOCYTES 41.5 % (15-50); MCH 29.7 pg (26.0-34.0); MCHC 32.2 g/dL (31.0-37.0); MCV 92.3 fL (80.0-100.0); MEAN PLATELET VOLUME 10.5 fL (7.4-10.4); NEUTROPHILS 44.1 % (40-80); PLATELET COUNT 52 10x3/uL (130-400); RBC 5.18 10x6/uL (4.20-6.10); RDW 15.7 % (11.5-14.5); WBC 5.8 10x3/uL (4.8-10.8)
[2016-08-11 05:08] LABS: ANION GAP 10.7 mmol/L (8-16); CALCIUM 8.1 mg/dL (8.5-10.1); CARBON DIOXIDE 27.4 mmol/L (21.0-32.0); CREATININE - SERUM 1.4 mg/dL (0.6-1.3); POTASSIUM - SERUM 4.1 mmol/L (3.5-5.1)
--- NOTE | 2016-08-11 07:00 | NUR ---
PATIENT IN HIGHFOWLERS POSITION WATCHING TV. ASSESSMENT COMPLETED AT THIS TIME. NO NEEDS VOICED.
--- NOTE | 2016-08-11 12:16 | NUR ---
WOUND CARE CONSULT: NOTED DISCOLORATION TO BLE. WILL MONITOR NEEDED.
--- NOTE | 2016-08-11 14:16 | HP ---
PATIENT: JOE SANCHEZ MEDICAL RECORD: [id number] ACCOUNT: [id number] LOCATION:[facility] D.2306 : 61 ADMISSION DATE: 08/07/16 HISTORY AND PHYSICAL EXAMINATION HISTORY OF PRESENT ILLNESS: A 56-year-old gentleman with no known cardiovascular history. He has a history of dyslipidemia, questionable bipolar disorder, family ____ for past 3-4 days with nausea, vomiting, emesis, ____ having falls, found to have elevated cardiac enzymes. Minimally is some chest pain that is more vague, not classic anginal. Most his symptoms are constitutional. We were asked to see him concerning his cardiovascular status. PAST MEDICAL HISTORY: 1. History of dyslipidemia. 2. BPH. 3. VRE. 4. Obstructive sleep apnea. ALLERGIES: SEROQUEL. MEDICATIONS: Typically include Lipitor 20 every day, fenofibrate 40 daily, Abilify 2 mg daily, Depakote 250 b.i.d., Neurontin 100 q.a.m., Pulmicort 0.25 mg b.i.d., Flovent 2 b.i.d. SOCIAL HISTORY: Lives here in [place]. He is nonsmoker. Easily takes care of his ADLs. No set exercise program. REVIEW OF SYSTEMS: The patient reports easy bruising but reports no swollen glands. The patient reports no fever, no night sweats, no significant weight gain, no significant weight loss. No significant exercise tolerance. The patient reports no dry eyes, no irritation, no vision change. Patient reports no difficulty hearing and no ear pain. Patient reports no frequent nose bleeds or nose and sinus problems. Patient reports on arm pain on exertion. No shortness of breath while lying down. No history of heart murmur. Patient reports no cough, no wheezing or coughing up blood. Patient reports no abdominal pain, no vomiting. Normal appetite. No diarrhea and not vomiting blood. No nausea and no constipation. Patient reports no incontinence. No difficulty urinating. No hematuria. No increased frequency. Patient reports no muscle aches. No weakness, no arthralgias, no back pain. No swelling of the extremities. Patient reports no abnormal mole, no jaundice, no rashes. Reports no loss of consciousness. No weakness and no numbness. No seizures, dizziness, or headaches. The patient reports no depression, no sleep disturbance, feeling safe in a relationship and no alcohol abuse. Patient reports on fatigue. Reports no runny nose or sinus pressure. No itching, no hives, and no frequent sneezing. PHYSICAL EXAMINATION: GENERAL: Pleasant gentleman in no acute distress. Blunt affect. Poor historian. VITAL SIGNS: Blood pressure 134/88, pulse is 105. HEENT: Normocephalic and atraumatic. NECK: No JVD or bruit. HEART: Regular. LUNGS: Montesinos clear. EXTREMITIES: Pulses are 2+. There is no edema. HISTORY AND PHYSICAL [id number] JOE SANCHEZ IMPRESSION: Worsening renal failure, difficult to interpret cardiac enzymes. He is receiving IV hydration, could be some intravascular deplete with some obstructive uropathy. We will check for echocardiograph study to assess LV functio. Further recommendations based on clinical course. TRANSINT:[id number] Voice Confirmation ID: [id number] DOCUMENT ID: [id number] ANUEL MIRELES MD at 1416 CC: [id number] DICTATION DATE: 08/08/16 1128 CENTRALIZED TRAFFIC CONTROL OPERATOR: 08/08/16 1456 ADM IN [facility] [address] [id number]
--- NOTE | 2016-08-11 15:17 | NUR ---
NORCO GIVEN FOR BACK PAIN 6/10 PER PER PRN ORDERS. DENIES FURTHER NEEDS. VISITING WITH VISITOR AT BEDSIDE.
--- NOTE | 2016-08-11 19:00 | NUR ---
REPORT RECIEVED, SHIFT ASSESSMENT COMPLETE, PT IS ALERT AND ORIENTED, ON HOME CPAP WITH 2L O2, O2 SAT 95%, LUNGS CLEAR IN B/L UPPER LOBES, DIMINISHED IN B/L LOWER LOBES, S1S2, CM-NSR, PATENT RIGHT FA PIV S/L, ABDOMEN IS DISTENDED WITH ACTIVE BS, PATENT F/C WITH DARK UOP, 24H URINE IN PROGRESS, EDEMA NOTED IN ALL EXTREMETIES, ALL PPP, VSS, CALL LIGHT IN REACH
--- NOTE | 2016-08-11 21:00 | NUR ---
HS MEDS GIVEN, NO NEEDS NOTED, WILL CON'T TO MONITOR
--- NOTE | 2016-08-11 23:11 | NUR ---
NO NEEDS NOTED AT THIS TIME, VSS, CALL LIGHT IN REACH
--- NOTE | 2016-08-11 23:45 | NUR ---
REPORT RECEIVED FROM ABDIAZIZ LIVINGSTON.
[2016-08-12] VITALS (7 sets, daily range): BP systolic 102–159; BP diastolic 62–90
--- NOTE | 2016-08-12 00:05 | NUR ---
PT TRANSFERRED TO 2119 AT THIS TIME,
--- NOTE | 2016-08-12 01:30 | NUR ---
LYING IN BED, CALL LIGHT IN REACH. WILL CONTINUE WITH PLAN OF CARE.
[2016-08-12 05:13] LABS: BASOPHILS 0.4 % (0.0-2.0); EOSINOPHILS 2.3 % (0-7); HEMOGLOBIN 15.9 g/dL (13.5-17.5); IMMATURE GRANULOCYTES 0.4 % (0-5); LYMPHOCYTES 41.7 % (15-50); MCH 30.5 pg (26.0-34.0); MCHC 33.1 g/dL (31.0-37.0); NEUTROPHILS 45.2 % (40-80); RBC 5.22 10x6/uL (4.20-6.10); RDW 15.6 % (11.5-14.5); WBC 5.3 10x3/uL (4.8-10.8)
[2016-08-12 05:18] LABS: ANION GAP 10.2 mmol/L (8-16); CALCIUM 8.4 mg/dL (8.5-10.1); CARBON DIOXIDE 27.2 mmol/L (21.0-32.0); CREATININE - SERUM 1.4 mg/dL (0.6-1.3); POTASSIUM - SERUM 4.4 mmol/L (3.5-5.1)
[2016-08-12 05:19] LABS: PLATELET COUNT 48 10x3/uL (130-400)
--- NOTE | 2016-08-12 06:29 | NUR ---
NO CHANGES FROM PREVIOUS ASSESSMENT, REMAINS NPO AT THIS TIME. CALL LIGHT IN REACH.
--- NOTE | 2016-08-12 09:48 | NUR ---
TELEMETRY SR. RESP UL ON 02 2L BERNARDA. LES PINA. NPO AFTER BRK FOR POSSIBLE HC TODAY. WILL CONT. PLAN OF CARE.
--- NOTE | 2016-08-12 11:09 | NUR ---
UD GIVEN BY RT. O2 INCREASED TO 3.5L NC TO KEEP SATS AT 92%.
[2016-08-12 14:24] LABS: ANCA - ANTIMYELOPEROXIDASE <9.0 U/mL (0.0-9.0); ANCA - ANTIPROTEINASE 3 <3.5 U/mL (0.0-3.5); ANCA - ATYPICAL <1:20 titer (Neg:<1:20); ANCA - CYTOPLASMIC <1:20 titer (Neg:<1:20); ANCA - PERINUCLEAR <1:20 titer (Neg:<1:20)
[2016-08-12 14:50] LABS: BASOPHILS 0.5 % (0.0-2.0); EOSINOPHILS 2.1 % (0-7); HEMATOCRIT 48.4 % (42.0-54.0); HEMOGLOBIN 15.8 g/dL (13.5-17.5); IMMATURE GRANULOCYTES 0.2 % (0-5); LYMPHOCYTES 34.3 % (15-50); MCHC 32.6 g/dL (31.0-37.0); MONOCYTES 13.4 % (2-11); NEUTROPHILS 49.5 % (40-80); RBC 5.26 10x6/uL (4.20-6.10); RDW 15.4 % (11.5-14.5); WBC 5.7 10x3/uL (4.8-10.8)
[2016-08-12 15:02] LABS: ANION GAP 12.5 mmol/L (8-16); CALCIUM 8.2 mg/dL (8.5-10.1); CARBON DIOXIDE 26.9 mmol/L (21.0-32.0); CREATININE - SERUM 1.4 mg/dL (0.6-1.3); POTASSIUM - SERUM 4.4 mmol/L (3.5-5.1)
[2016-08-12 15:09] LABS: PLATELET COUNT 46 10x3/uL (130-400)
--- NOTE | 2016-08-12 19:58 | NUR ---
RESUMED CARE OF PT, LYING IN BED RESPIRAITONS EVEN AND UNLABORED ON 3.5 LPM VIA NC. 76 SR ON TELEMETRY. RIGHT FOREARM SALINE LOCKED. SALDANA TO GRAVITY. CALL LIGHT IN REACH. WILL CONTINUE TO MONITOR. SEE NURSE ASSESSMENT.
[2016-08-13] VITALS: BP 159/87
--- NOTE | 2016-08-13 03:19 | NUR ---
CORRECTION OFFICER HEAD AT BEDSIDE TO OBTAIN VITALS, CALL LIGHT IN REACH. WILL CONTINUE WITH PLAN OF CARE.
[2016-08-13 04:00] VITALS: BP 169/93
[2016-08-13 06:07] LABS: BASOPHILS 0.2 % (0.0-2.0); EOSINOPHILS 2.5 % (0-7); HEMATOCRIT 47.7 % (42.0-54.0); HEMOGLOBIN 15.6 g/dL (13.5-17.5); IMMATURE GRANULOCYTES 0.4 % (0-5); LYMPHOCYTES 34.1 % (15-50); MCH 29.9 pg (26.0-34.0); MCHC 32.7 g/dL (31.0-37.0); MCV 91.6 fL (80.0-100.0); MEAN PLATELET VOLUME 11.5 fL (7.4-10.4); MONOCYTES 10.2 % (2-11); NEUTROPHILS 52.6 % (40-80); RBC 5.21 10x6/uL (4.20-6.10); RDW 15.5 % (11.5-14.5); WBC 4.8 10x3/uL (4.8-10.8)
[2016-08-13 06:10] LABS: ANION GAP 12.3 mmol/L (8-16); CALCIUM 8.6 mg/dL (8.5-10.1); CREATININE - SERUM 1.1 mg/dL (0.6-1.3); POTASSIUM - SERUM 4.3 mmol/L (3.5-5.1)
[2016-08-13 06:34] LABS: PLATELET COUNT 45 10x3/uL (130-400)
[2016-08-13 07:26] VITALS: BP 149/93
--- NOTE | 2016-08-13 07:45 | NUR ---
INTRODUCED MYSELF TO PT PRIMARY RN FOR TODAYS SHIFT. PT IS ALERT AND ORIENTED RESTING QUIETLY IN BED. RR NONLABORED WITH NC @3.5L IN PLACE. PT HAS A R.FA PIV WITH DRSG CDI AND SWAB CAPS IN USE, FLUSHES WITHOUT ANY RESISTANCE MET. PT HAS SALDANA HANGING TO GRAVITY OFF R.SIDE OF BED. STAT LOCK SECURED TO R.INNER THIGH. URINE COLOR IS VERY DARK AND CLOTS ARE NOTED IN DRAINAGE BAG. PT DENIES ANY CURRENT PAIN OR NEEDS AT THIS TIME. SHIFT ASSESSMENT COMPLETED AND PT NPO FOR PLANNED CATH TODAY. WILL CPOC.
--- NOTE | 2016-08-13 09:50 | NUR ---
AT BEDSIDE TALKING WITH PT. PT WILL NOT BE GOING TO CATH TODAY R/T LOW PLATELET COUNT. PT NOW ABLE TO EAT AND TRAY HAS BEEN ORDERED. PT RESTING QUIETLY WITH FAMILY AT BEDSIDE, DENIES ANY CURRENT PAIN OR NEEDS AT THIS TIME. CL IN REACH. WILL CPOC.
--- NOTE | 2016-08-13 11:23 | NUR ---
PT CALLED REQUESTING ASSISTANCE UP TO BR. ASSISTED PT WITH MINIMAL ASSIST. PT HAD LARGE BOWEL MOVEMENT AND IS NOW BACK IN BED RESTING. CL IN REACH, PT DENIES ANY FURTHER NEEDS AT THIS TIME. WILL CPOC.
[2016-08-13 12:04] VITALS: BP 160/90
[2016-08-13 16:00] VITALS: BP 166/101
--- NOTE | 2016-08-13 17:00 | NUR ---
PT SITTING UP IN BED EATING HIS DINNER TRAY. RR NONLABORED WITH NC @3.5L IN PLACE. EMPTIED SALDANA OF 1100ML OF CONCENTRATED URINE WITH NOTED BLOOD CLOTS/PARTICLES. PT STATES HE IS FEELING WELL AND DENIES ANY CURRENT PAIN OR FURTHER NEEDS. CL IN REACH, WILL CPOC.
[2016-08-13 20:25] VITALS: BP 144/77
[2016-08-14 00:41] VITALS: BP 146/86
[2016-08-14 05:48] VITALS: BP 140/80
[2016-08-14 06:32] LABS: BASOPHILS 0.2 % (0.0-2.0); EOSINOPHILS 2.7 % (0-7); HEMATOCRIT 46.9 % (42.0-54.0); HEMOGLOBIN 15.4 g/dL (13.5-17.5); IMMATURE GRANULOCYTES 0.2 % (0-5); LYMPHOCYTES 31.8 % (15-50); MCH 30.1 pg (26.0-34.0); MCHC 32.8 g/dL (31.0-37.0); MCV 91.6 fL (80.0-100.0); MEAN PLATELET VOLUME 11.5 fL (7.4-10.4); MONOCYTES 10.3 % (2-11); NEUTROPHILS 54.8 % (40-80); RBC 5.12 10x6/uL (4.20-6.10); RDW 15.1 % (11.5-14.5); WBC 4.5 10x3/uL (4.8-10.8)
[2016-08-14 06:38] LABS: PLATELET COUNT 36 10x3/uL (130-400)
[2016-08-14 07:01] LABS: CALC OSMOLALITY 291 mosm/kg (275-300); CALCIUM 8.7 mg/dL (8.5-10.1); CARBON DIOXIDE 30.2 mmol/L (21.0-32.0); CHLORIDE - SERUM 105 mmol/L (98-107); GLUCOSE 150 mg/dL (74-106); POTASSIUM - SERUM 4.1 mmol/L (3.5-5.1); SODIUM 142 mmol/L (136-145); UREA NITROGEN 28 mg/dL (7-18); eGFR NON AFRICAN AMERICAN 82 mL/min (90-120)
--- NOTE | 2016-08-14 07:21 | NUR ---
PT SITTING UP IN BED RECEIVING BREATHING TX DENIES NEEDS WILL CONT TO MONITOR.
[2016-08-14 08:55] VITALS: BP 190/103
--- NOTE | 2016-08-14 09:51 | NUR ---
TALKED WITH DR RODRIGUEZ ABOUT PT HIGH BP. HE SAID 'OK"
[2016-08-14 13:42] VITALS: BP 162/97
[2016-08-14 17:02] VITALS: BP 147/86
--- NOTE | 2016-08-14 18:13 | NUR ---
PT SITTING UP IN BED WITH CPAP ON DENIES NEEDS WILL CONT TO MONITOR.
[2016-08-14 20:15] VITALS: BP 157/88
--- NOTE | 2016-08-14 21:58 | NUR ---
PT RESTING. SITTING ON SIDE OF BED WITH MULITPLE FAMILY IN ROOM. ALERT/ORIENTED. SR PER TELEMETRY. LES PATENT TO BEDSIDE DRAIN BAG. SALINE LOCK TO RFA. O2 @ 3.5ML/NC AND USES HOME CPAP AT BEDTIME. DENIES NEEDS AT THIS TIME. VERY PLEASANT. CPOC.
[2016-08-15 00:23] VITALS: BP 185/86
[2016-08-15 04:20] VITALS: BP 140/86
[2016-08-15 05:08] LABS: BASOPHILS 0.6 % (0.0-2.0); EOSINOPHILS 2.4 % (0-7); HEMATOCRIT 46.1 % (42.0-54.0); HEMOGLOBIN 15.1 g/dL (13.5-17.5); IMMATURE GRANULOCYTES 0.2 % (0-5); LYMPHOCYTES 31.7 % (15-50); MCHC 32.8 g/dL (31.0-37.0); MCV 91.5 fL (80.0-100.0); MEAN PLATELET VOLUME 11.3 fL (7.4-10.4); MONOCYTES 11.5 % (2-11); NEUTROPHILS 53.6 % (40-80); RBC 5.04 10x6/uL (4.20-6.10); RDW 14.9 % (11.5-14.5); WBC 5.4 10x3/uL (4.8-10.8)
[2016-08-15 05:20] LABS: PLATELET COUNT 44 10x3/uL (130-400)
[2016-08-15 05:51] LABS: CALC OSMOLALITY 288 mosm/kg (275-300); CALCIUM 8.4 mg/dL (8.5-10.1); CARBON DIOXIDE 28.7 mmol/L (21.0-32.0); CHLORIDE - SERUM 107 mmol/L (98-107); CREATININE - SERUM 0.9 mg/dL (0.6-1.3); GLUCOSE 189 mg/dL (74-106); POTASSIUM - SERUM 3.8 mmol/L (3.5-5.1); SODIUM 141 mmol/L (136-145); eGFR NON AFRICAN AMERICAN > 90 mL/min (90-120)
[2016-08-15 05:53] LABS: UREA NITROGEN 20 mg/dL (7-18)
--- NOTE | 2016-08-15 07:30 | NUR ---
RESTING QUIETLY EYES CLOPSED RESP UNLABORED NAD NOTED
[2016-08-15 08:00] VITALS: BP 159/88
[2016-08-15 12:00] VITALS: BP 160/90
[2016-08-15 13:10] LABS: D-DIMER-QUANTITATIVE 0.96 ug/mLFEU (0.20-0.54)
[2016-08-15 16:00] VITALS: BP 158/84
[2016-08-15 16:07] LABS: UPE - ALPHA 1 GLOBULIN 3.8 % (NOT ESTAB.); UPE - ALPHA 2 GLOBULIN 5.9 % (NOT ESTAB.); UPE - BETA GLOBULIN 19.1 % (NOT ESTAB.); UPE - GAMMA GLOBULIN 18.3 % (NOT ESTAB.)
--- NOTE | 2016-08-15 19:46 | NUR ---
RESUMED CARE OF PT, LYING IN BED WITH EYES CLOSED RESPIRATIONS EVEN AND UNLABORED ON CPAP. 83 SR ON TELEMETRY. RIGHT FOREARM SALINE LOCKED. SALDANA TO GRAVITY. CALL LIGHT IN REACH. WILL CONTINUE TO MONITOR. SEE NURSE ASSESSMENT. NO NEEDS NOTED AT THIS TIME.
[2016-08-15 20:00] VITALS: BP 126/60
[2016-08-16] VITALS: BP 158/92
[2016-08-16 04:00] VITALS: BP 109/60
[2016-08-16 06:55] LABS: CALC OSMOLALITY 283 mosm/kg (275-300); CALCIUM 8.2 mg/dL (8.5-10.1); CARBON DIOXIDE 28.2 mmol/L (21.0-32.0); CHLORIDE - SERUM 105 mmol/L (98-107); CREATININE - SERUM 0.9 mg/dL (0.6-1.3); GLUCOSE 156 mg/dL (74-106); POTASSIUM - SERUM 4.3 mmol/L (3.5-5.1); SODIUM 140 mmol/L (136-145); UREA NITROGEN 19 mg/dL (7-18); eGFR NON AFRICAN AMERICAN > 90 mL/min (90-120)
[2016-08-16 06:57] LABS: BASOPHILS 0.4 % (0.0-2.0); HEMOGLOBIN 15.8 g/dL (13.5-17.5); IMMATURE GRANULOCYTES 0.4 % (0-5); MCH 30.2 pg (26.0-34.0); MCHC 32.9 g/dL (31.0-37.0); MCV 91.8 fL (80.0-100.0); MEAN PLATELET VOLUME 12.5 fL (7.4-10.4); MONOCYTES 10.8 % (2-11); NEUTROPHILS 50.4 % (40-80); RBC 5.23 10x6/uL (4.20-6.10); RDW 14.9 % (11.5-14.5); WBC 5.3 10x3/uL (4.8-10.8)
[2016-08-16 06:59] LABS: PLATELET COUNT 40 10x3/uL (130-400)
[2016-08-16 08:00] VITALS: BP 176/88
--- NOTE | 2016-08-16 10:54 | NUR ---
IV access-#22 gauge IV placed in right hand for IV access. Jennifer Alejandra RN
[2016-08-16 12:00] VITALS: BP 149/83
--- NOTE | 2016-08-16 12:56 | NUR ---
Nutrition follow-up: Diet: Renal ADA PO intake 100% of meals Labs reviewed +BM Wt: 289# RDN following.
--- NOTE | 2016-08-16 14:16 | EC ---
PATIENT:JOE SANCHEZ DATE OF SERVICE: 08/07/16 SEX: M MEDICAL RECORD: [id number] DATE OF : 62 LOCATION:D.M2 D.212 AGE OF PATIENT: 56 ADMISSION DATE: 08/07/16 REFERRING PHYSICIAN: INTERPRETING PHYSICIAN: LIAM RODRIGUEZ MD ECHOCARDIOGRAM REPORT ECHO CHARGES 4 ECHO COMPLETE CLINICAL DIAGNOSIS: ACS ECHOCARDIOGRAPHIC MEASUREMENTS (adult normal given) AC root (d.<3.7cm) 3.4 LV Septum d (<1.2 cm> 2.0 Valve Excursion 1.1 LV Septum (systole) 2.6 Left Atria (s.<4.0cm> 4.3 LVPW d(<1.2cm) 1.8 RV (d.<2.3cm) 4.1 LVPW (sytole) 2.3 LV diastole(<5.6CM) 3.7 MV E-F(>70mm/sec) LV systole 2.0 LVOT Diameter 1.9 MV exc.(>10mm) Est.ejection fraction (50-75%) Pericardial Effusion N DOPPLER: LVIT A 56.0 E 64.0 LA RVSP 59.0 LVOT 116 AOP1/2T Asc. Ao 156 RVOT 48.0 RA PA 82.0 AV Gradient Peak 9.8 AV Mean 4.2 AV Area 2.2 MV Gradient Peak 4.1 MV Mean 1.5 MV Area COMMENTS: Orthotist: Nupur GALVANOE Job Estimator:Gianni Rosa TAPE# PACS DATE OF SERVICE: 08/09/2016 Echocardiogram FINDINGS: 1. Left ventricular chamber size is within normal limits. Left ventricular systolic function is mildly depressed. Overall ejection fraction is 40%. 2. Left atrium is enlarged at 4.3 cm. Right atrium and right ventricle chamber sizes are moderately enlarged. 3. Valvular structures: Aortic valve has heavy aortic sclerosis, but no ECHOCARDIOGRAM REPORT [id number] JOE SANCHEZ significant aortic stenosis. Valve area calculates to 2.2 cm-squared. The remaining valvular structures have normal structure and motion. 4. Doppler interrogation only reveals [id number] tricuspid regurgitation, no other valvular insufficiency or stenosis. Pulmonary systolic pressure is mildly elevated estimated at 59 mmHg. 5. No evidence of pericardial effusion or left ventricular thrombus. TRANSINT:[id number] Voice Confirmation ID: [id number] DOCUMENT ID: [id number] LIAM RODRIGUEZ MD at 1416 CC: [id number] DICTATION DATE: 08/09/161831 MANAGER HEAVY DUTY: 08/10/16 0008 ADM IN [facility] [address] [id number]
[2016-08-16 16:00] VITALS: BP 127/73
[2016-08-16 20:00] VITALS: BP 148/80
[2016-08-17] VITALS: BP 121/73
--- NOTE | 2016-08-17 00:01 | NUR ---
PT ASSESSMENT COMPLETED NO DISTRESS OBSERVED CALL LIGHT IN REACH SRX2 BED LOW AND LOCKED RESPERATIONS EVEN AND UNLABORED WILL MONITOR
[2016-08-17 06:05] LABS: BASOPHILS 0.5 % (0.0-2.0); EOSINOPHILS 3.5 % (0-7); HEMATOCRIT 46.8 % (42.0-54.0); HEMOGLOBIN 15.4 g/dL (13.5-17.5); IMMATURE GRANULOCYTES 0.5 % (0-5); LYMPHOCYTES 38.3 % (15-50); MCHC 32.9 g/dL (31.0-37.0); MCV 91.2 fL (80.0-100.0); MEAN PLATELET VOLUME 11.5 fL (7.4-10.4); MONOCYTES 12.5 % (2-11); NEUTROPHILS 44.7 % (40-80); RBC 5.13 10x6/uL (4.20-6.10); RDW 14.7 % (11.5-14.5); WBC 4.2 10x3/uL (4.8-10.8)
[2016-08-17 06:14] LABS: PLATELET COUNT 35 10x3/uL (130-400)
[2016-08-17 06:29] LABS: CALC OSMOLALITY 288 mosm/kg (275-300); CALCIUM 8.4 mg/dL (8.5-10.1); CARBON DIOXIDE 32.1 mmol/L (21.0-32.0); CHLORIDE - SERUM 106 mmol/L (98-107); GLUCOSE 115 mg/dL (74-106); POTASSIUM - SERUM 4.1 mmol/L (3.5-5.1); SODIUM 143 mmol/L (136-145); UREA NITROGEN 20 mg/dL (7-18); eGFR NON AFRICAN AMERICAN 82 mL/min (90-120)
[2016-08-17 08:00] VITALS: BP 167/85
--- NOTE | 2016-08-17 09:22 | NUR ---
TELEMETRY . LES PINA. CALL LIGHT IN REACH. WILL CONT. PLAN OF CARE.
[2016-08-17 12:00] VITALS: BP 147/81
[2016-08-17 16:00] VITALS: BP 156/82
[2016-08-17 19:00] VITALS: BP 146/81
[2016-08-18] VITALS: BP 137/71
[2016-08-18 04:00] VITALS: BP 136/76
[2016-08-18 06:45] LABS: % SATURATION 29 % (15-55); IRON 115 ug/dl (35-150); TOTAL IRON BIND CAPACITY 395 ug/dl (260-445); UNSAT IRON BIND CAPACITY 280 ug/dl (150-375)
[2016-08-18 06:52] LABS: ALBUMIN 2.8 g/dL (3.4-5.0); ALKALINE PHOSPHATASE 48 U/L (46-116); ALT (SGPT) 36 U/L (10-68); CALC OSMOLALITY 282 mosm/kg (275-300); CALCIUM 8.6 mg/dL (8.5-10.1); CARBON DIOXIDE 29.2 mmol/L (21.0-32.0); CHLORIDE - SERUM 106 mmol/L (98-107); CREATININE - SERUM 0.9 mg/dL (0.6-1.3); GLUCOSE 136 mg/dL (74-106); POTASSIUM - SERUM 4.1 mmol/L (3.5-5.1); PROTEIN - SERUM 6.1 g/dL (6.4-8.2); SODIUM 140 mmol/L (136-145); UREA NITROGEN 17 mg/dL (7-18); eGFR NON AFRICAN AMERICAN > 90 mL/min (90-120)
[2016-08-18 07:02] LABS: INR 1.27 (0.85-1.17); PROTIME 15.8 SECONDS (11.6-15.0)
[2016-08-18 07:19] LABS: BASOPHILS 0.4 % (0.0-2.0); EOSINOPHILS 2.3 % (0-7); HEMATOCRIT 44.6 % (42.0-54.0); HEMOGLOBIN 14.9 g/dL (13.5-17.5); IMMATURE GRANULOCYTES 0.2 % (0-5); LYMPHOCYTES 31.1 % (15-50); MCHC 33.4 g/dL (31.0-37.0); MCV 89.9 fL (80.0-100.0); MEAN PLATELET VOLUME 12.2 fL (7.4-10.4); MONOCYTES 10.4 % (2-11); NEUTROPHILS 55.6 % (40-80); RBC 4.96 10x6/uL (4.20-6.10); RDW 14.5 % (11.5-14.5); WBC 4.7 10x3/uL (4.8-10.8)
[2016-08-18 07:21] LABS: PLATELET COUNT 38 10x3/uL (130-400)
[2016-08-18 08:00] VITALS: BP 155/82
--- NOTE | 2016-08-18 08:00 | NUR ---
BARON TARANGO LEVEL CALLED TO DR. MERCADO. NEW ORDERS GIVEN.
--- NOTE | 2016-08-18 09:20 | NUR ---
TELEMETRY SR. RESP UL ON 3.5L N/C. UP AMBULATING WITH PT ASSIST. WILL CONT. PLAN OF CARE.
--- NOTE | 2016-08-18 10:19 | NUR ---
PATIENT STANDING IN ROOM WHILE FAMILY CUTTING HAIR. EXPLAINED TO PATIENT AND FAMILY ORDER RECEIVED TO DC SALDANA. PATIENT AND FAMILY REFUSED SALDANA REMOVAL AT THIS TIME. MARIALUISA LIVINGSTON NOTIFIED.
[2016-08-18 11:50] VITALS: BP 148/77
--- NOTE | 2016-08-18 13:10 | NUR ---
SALDANA CATH DCD WITH 750CC OP AND 10CC BULB. WILL MONITOR VOID.
--- NOTE | 2016-08-18 13:11 | NUR ---
UP TO AMBULATE WITH PT ASSIST.
[2016-08-18 13:17] LABS: ADAMTS13 ACTIVITY >100 % (>66)
[2016-08-18 14:24] LABS: PLT AB - HLA CLASS 1 Negative (Negative); PLT AB - IIb IIIa Negative (Negative); PLT AB - Ia IIa Negative (Negative); PLT AB - Ib IX Negative (Negative)
[2016-08-18 15:23] LABS: HEPARIN INDUCED PLATELET AB 0.832 OD (0.000-0.400)
[2016-08-18 15:28] VITALS: BP 156/87
--- NOTE | 2016-08-18 19:00 | NUR ---
RECEIVED REPORT AND ASSUMED PT CARE FROM DAY SHIFT NURSE @ THIS TIME.
[2016-08-18 20:00] VITALS: BP 173/92
[2016-08-19] VITALS: BP 157/93
[2016-08-19 06:15] LABS: FIBRIN SPLIT PRODUCTS <5 ug/mL (<5)
[2016-08-19 07:41] VITALS: BP 166/91
[2016-08-19 08:21] LABS: ALPHA FETOPROTEIN -(TUMOR MRK) 1.4 ng/mL (0.0-8.3)
--- NOTE | 2016-08-19 09:12 | NUR ---
TELEMETRY SR. RESP UL. CALL LIGHT IN REACH. WILL CONT. PLAN OF CARE.
--- NOTE | 2016-08-19 09:31 | NUR ---
AMBULATES HALLWAY WITH PT ASSIST.
--- NOTE | 2016-08-19 09:44 | NUR ---
AMBULATES 250 FT WITH PT ASSIST.
[2016-08-19 10:18] LABS: HEPATITIS C ANTIBODY <0.1 (0.0-0.9)
[2016-08-19 11:20] LABS: ANA REFLEX - DIRECT Negative (Negative)
[2016-08-19 12:05] VITALS: BP 170/89
[2016-08-19 16:05] VITALS: BP 145/74
--- NOTE | 2016-08-19 19:00 | NUR ---
RECEIVED REPORT AND ASSUMED PT CARE FROM DAY SHIFT NURSE @ THIS TIME.
[2016-08-19 20:00] VITALS: BP 151/86
[2016-08-20] VITALS (9 sets, daily range): BP systolic 148–187; BP diastolic 58–95
[2016-08-20 05:57] LABS: BASOPHILS 0.5 % (0.0-2.0); EOSINOPHILS 1.8 % (0-7); IMMATURE GRANULOCYTES 0.2 % (0-5); LYMPHOCYTES 21.4 % (15-50); MCHC 33.3 g/dL (31.0-37.0); MCV 90.1 fL (80.0-100.0); MONOCYTES 9.8 % (2-11); NEUTROPHILS 66.3 % (40-80); RBC 5.33 10x6/uL (4.20-6.10); RDW 14.3 % (11.5-14.5); WBC 5.6 10x3/uL (4.8-10.8)
[2016-08-20 06:03] LABS: PLATELET COUNT 33 10x3/uL (130-400)
--- NOTE | 2016-08-20 07:22 | NUR ---
RECEIVED PT REPORT. NO OTHER NEEDS AT THIS TIME. WILL CONTINUE PLAN OF CARE. NO OTHER NEEDS.
--- NOTE | 2016-08-20 10:13 | NUR ---
PT IS ALERT. ASSESSMENT DONE PER FLOWSHEET. NO OTHER NEEDS AT THIS TIME. WILL CONTINUE TO ONITOR.
--- NOTE | 2016-08-20 10:34 | NUR ---
Nutrition Follow Up: Chart reviewed. Pt NPO for procedure today. Pt has been eating 100% x all meals. Wt loss 9# since admit. +BM 08/20/16. Meds noted including Lactulose. Labs noted. Rec resuming diet when medically feasible. RD following.
[2016-08-20 12:19] LABS: MITOCHONDRIAL ANTIBODY 9.3 Units (0.0-20.0); SMOOTH MUSCLE ABS (ACTIN) 22 Units (0-19)
[2016-08-21 00:54] VITALS: BP 130/75
[2016-08-21 04:03] VITALS: BP 131/71
[2016-08-21 05:16] LABS: BASOPHILS 0.3 % (0.0-2.0); EOSINOPHILS 1.2 % (0-7); HEMATOCRIT 47.5 % (42.0-54.0); HEMOGLOBIN 16.2 g/dL (13.5-17.5); IMMATURE GRANULOCYTES 0.3 % (0-5); LYMPHOCYTES 23.2 % (15-50); MCH 30.7 pg (26.0-34.0); MCHC 34.1 g/dL (31.0-37.0); MCV 90.1 fL (80.0-100.0); MEAN PLATELET VOLUME 12.3 fL (7.4-10.4); RBC 5.27 10x6/uL (4.20-6.10); RDW 14.2 % (11.5-14.5); WBC 6.9 10x3/uL (4.8-10.8)
[2016-08-21 05:23] LABS: PLATELET COUNT 47 10x3/uL (130-400)
[2016-08-21 05:43] LABS: ALBUMIN 3.1 g/dL (3.4-5.0); ALKALINE PHOSPHATASE 63 U/L (46-116); ALT (SGPT) 47 U/L (10-68); CALC OSMOLALITY 287 mosm/kg (275-300); CHLORIDE - SERUM 106 mmol/L (98-107); GLUCOSE 134 mg/dL (74-106); POTASSIUM - SERUM 3.5 mmol/L (3.5-5.1); PROTEIN - SERUM 6.7 g/dL (6.4-8.2); SODIUM 143 mmol/L (136-145); UREA NITROGEN 16 mg/dL (7-18); eGFR NON AFRICAN AMERICAN 82 mL/min (90-120)
[2016-08-21 07:35] VITALS: BP 147/81
--- NOTE | 2016-08-21 09:15 | NUR ---
TELEMETRY SR. RESP UL ON . AMBULATES 250 WITH PT ASSIST.
[2016-08-21 11:19] VITALS: BP 120/70
[2016-08-21 15:09] VITALS: BP 127/73
--- NOTE | 2016-08-21 19:44 | NUR ---
INITIAL ROUNDS COMPLETED AT 1910 HRS. PT DENIED ANY DISCOMFORT. FAMILY AT BEDSIDE. ASSESSMENT COMPLETED AT 1940 HRS. SR PER CM HR 78. IV TO R HAND SL. R NECK DRESSING CLEAN, DRY AND INTACT. O2 4LNC. LUNGS DIMINISHED IN BASES BILAT. 1+ PEDAL EDEMA NOTED. PT HAS HOME CPCP MACHINE AT BEDSIDE. WILL CONTINUE TO MONITOR. SR UP X2, CALL LIGHT WITHIN REACH.
[2016-08-21 21:17] VITALS: BP 100/56
--- NOTE | 2016-08-22 00:27 | NUR ---
PT RESTING WITH EYES CLOSED. RESP EVEN AND REGULAR. HOME CPAP IN USE. SR UP X2, CALL LIGHT WITHIN REACH.
[2016-08-22 02:01] VITALS: BP 135/72
--- NOTE | 2016-08-22 02:34 | NUR ---
PT RESTING WITH EYES CLOSED. RESP EVEN AND REGULAR. SR UP X2, CALL LIGHT WITHIN REACH. HOME CPAP IN USE.
[2016-08-22 04:25] VITALS: BP 150/87
--- NOTE | 2016-08-22 05:21 | NUR ---
PT AWAKE; DENIES ANY DISCOMFORT. WILL CONTINUE TO MONITOR.
--- NOTE | 2016-08-22 06:16 | NUR ---
VSS THROUGHJOUT NIGHT. SR PER CM . PT DENIED ANY DISCOMFORT. NEEDS MET; WILL CONTINUE TO MONITOR.
[2016-08-22 07:28] VITALS: BP 164/80
--- NOTE | 2016-08-22 08:52 | NUR ---
Ambulates 350 feet with pt assist. Resp UL on . Will cont. plan of care.
[2016-08-22 11:20] LABS: BASOPHILS 0.4 % (0.0-2.0); EOSINOPHILS 1.1 % (0-7); HEMATOCRIT 43.6 % (42.0-54.0); HEMOGLOBIN 14.8 g/dL (13.5-17.5); IMMATURE GRANULOCYTES 0.2 % (0-5); LYMPHOCYTES 18.2 % (15-50); MCH 30.3 pg (26.0-34.0); MCHC 33.9 g/dL (31.0-37.0); MCV 89.3 fL (80.0-100.0); MONOCYTES 13.1 % (2-11); RBC 4.88 10x6/uL (4.20-6.10); RDW 14.2 % (11.5-14.5); WBC 5.4 10x3/uL (4.8-10.8)
[2016-08-22 11:22] LABS: PLATELET COUNT 43 10x3/uL (130-400)
[2016-08-22 11:57] VITALS: BP 108/62
[2016-08-22 15:10] VITALS: BP 103/57
--- NOTE | 2016-08-22 19:26 | NUR ---
INITIAL ROUNDS COMPLETED. PT RESTING WITH EYES CLOSED WITH HOME CPAP IN USE. RESP EVEN AND REGULAR. SR PER CM HR 87. WILL CONTINUE TO MONITOR. SR UPV X2, CALL LIGHT WITHIN REACH.
[2016-08-22 20:00] VITALS: BP 117/62
--- NOTE | 2016-08-22 22:17 | NUR ---
Darline LIND RN HS NOTIFIED THAT THERE IS NO MUCOMYST PO AVAILABLE. WILL CONITNUE TO MONITOR.
--- NOTE | 2016-08-22 23:09 | NUR ---
MUCOMYST 600MG PO GIVEN. BEDBATH IN PROGRESS. BED LINENS CHANGED. WILL CONTINUE TO MONITOR.
[2016-08-23] VITALS: BP 132/81
--- NOTE | 2016-08-23 00:52 | NUR ---
SR PER CM HR 88. PT RESTING WITH EYES CLOSED. RESP EVEN AND REGULAR. SR UP X2, CALL LIGHT WITHIN REACH.
--- NOTE | 2016-08-23 02:11 | NUR ---
PT RESTING WITH EYES CLOSED. RESP EVEN AND REGULAR. HOME CPAP MACHINE IN USE. SR UP X2, CALL LIGHT WITHIN REACH.
[2016-08-23 04:00] VITALS: BP 133/77
--- NOTE | 2016-08-23 04:53 | NUR ---
SCHEDULED MED GIVEN. PT DENIES ANY DISCOMFORT. WILL CONTINUE TO MONITOR.
--- NOTE | 2016-08-23 06:28 | NUR ---
VSS THROUGHOUT NIGHT. SR PER CM. PT DENIED ANY DISCOMFORT. NEEDS MET; WILL CONTINUE TO MONITOR.
--- NOTE | 2016-08-23 07:30 | NUR ---
RECEIVED PT SITTING IN CHAIR AAOX4 DENIES ANY NEEDS OR DISCOMFORT AT THIS TIME
[2016-08-23 08:00] VITALS: BP 131/76
[2016-08-23 12:00] VITALS: BP 133/73
--- NOTE | 2016-08-23 14:22 | NUR ---
PATIENT RESTING ON ROOM AIR SPO2 88% OXYGEN REAPPLIED AT 3 LPM NC RECOVERED TO 94%
[2016-08-23] MEDS ORDERED: COZAAR100 MG PO (15:33)
[2016-08-23] MEDS ORDERED: COREG 3.1253.125 MG PO (15:33)
[2016-08-23] MEDS ORDERED: CHRONULAC30 ML PO (15:34)
[2016-08-23] MEDS ORDERED: FUROSEMIDE20 MG PO (15:34)
--- NOTE | 2016-08-23 15:41 | NUR ---
Patient Name: JOE SANCHEZ Encounter No: [id number] : 1960 Primary Insurance: [employer] Anticipated DC Date: 08-23-2016 Planned Disposition: Home DCP follow-up note: CM RECEIVED DISCHARGE ORDER, SPOKE TO BEDSIDE NURSE SHEMAR TO REQUEST HOME OXYGEN TESTING. SHEMAR NOTIFIED CM THAT PT WAS 88% ON ROOM AIR AT REST WITH RECOVERY ON 3LITERS NASAL CANNULA. CM MET WITH PT IN ROOM WHO REPORTS THAT HE GETS ALL MEDICATIONS AND EQUIPMENT FROM [place] AND IS SEEN AT THE LOCAL [place] [facility]. PT DOES NOT HAVE OXYGEN OR NEBULIZER, IF NEEDED, AT HOME. AT APPROXIMATELY 1430 HOURS CM CALLED [facility], , OPTION 3, SPOKE TO ROBYN AND PROVIDED PT INFORMATION AND REQUEST FOR PORTABLE OXYGEN ARRANGEMENT FOR PT TO GO HOME TODAY, THAT PT WAS WAITING ON OXYGEN ARRANGEMENT FOR DISCHARGE HOME. ROBYN ADVISED THAT SHE WILL SEND REQUEST TO PT'S [place] [facility]ARE TEAM WHO WILL CONTACT CM WITH FURTHER INSTRUCTIONS. CM NOTIFIED PT. CM CALLED [place], , NOTIFIED OF HOSPITAL DISCHARGE. CM FAXED REFERRAL INFORMATION FOR OXYGEN WELL H & P, CONSULTS AND FINAL DOCTORS NOTES AND DISCHARGE ORDER TO [facility] AT [phone]. CM WAITING RETURN CALL FROM [facility] PT CARE TEAM IN [place] WELL OXYGEN ARRANGEMENT BY [facility] IN [place]. Rayo Allison, CASE MANAGEMENT
--- NOTE | 2016-08-23 15:54 | NUR ---
CORRECTION TO FAX NUMBER TO [facility] IN [place]: [phone], TO WHICH PT'S INFORMATION AND OXYGEN REQUEST WERE FAXED TO. CM WAITING RETURN CALL FROM [facility] WELL OXYGEN ARRANGEMENT AND DELIVERY TO PT'S HOSPITAL ROOM FOR DISCHARGE HOME. AT APPROXIMATELY 1555 HOURS, CM CALLED [facility], [place], , SPOKE TO LESLY, WHO CONTACTED NURSE AT [facility] TO ASSIST IN ARRANGING PT'S OXYGEN FOR DISCHARGE HOME.
--- NOTE | 2016-08-23 17:13 | NUR ---
REVIEWED DISCHARGED WITH PT AND FAMILY STATE UNDERSTANDING PT DISCHARGED HOME WITH ALL PERSONAL BELONGINGS LEFT UNIT VIA W/C IN STABLE CONDITION
--- NOTE | 2016-08-24 13:42 | DS ---
PATIENT:JOE SANCHEZ :62 MEDICAL RECORD: [id number] DISCHARGE SUMMARY ADMISSION DATE: 08/07/16 DISCHARGE DATE: 08/23/16 DATE OF ADMISSION: 08/07/2016 DATE OF DISCHARGED: 08/23/2016 IMPRESSION: 1. Syncope. 2. Acute renal failure, resolved. 3. Cardiomyopathy, improved on therapy. 4. Hypertension. 5. Thrombocytopenia. 6. Cirrhosis with ascites. BRIEF HISTORY AND HOSPITAL COURSE: Admitted with near syncope and acute renal failure, was found to have cardiomyopathy with EF of 40%. Medications were adjusted at this time. He developed thrombocytopenia. Hematology/oncology workup revealed ascites. He underwent liver biopsy, results pending at this point. Discharged home in good condition. MEDICATIONS: Include losartan 100 mg p.o. day, Lasix 20 mg p.o. daily, lactulose ____ t.i.d., amlodipine 5 daily and Coreg 25 daily. ACTIVITY: As tolerated. DIET: AHA diet. FOLLOWUP: In the office in 3-4 weeks. TRANSINT:[id number] Voice Confirmation ID: [id number] DOCUMENT ID: [id number] ANUEL MIRELES MD at 1342 CC: [id number] DICTATION DATE: 08/23/16 1356 OPERATIONS DEVELOPER: 08/24/16 0059 DIS IN 08/23/[address] [address]
== END 2016-08-23 17:15 | disposition home or self-care (01) | DRG 433 ==
LOC: D.ER 18:48 → D.ICU 22:32 → D.M2 22:32
PROVIDERS: Emergency Medicine; Family Medicine; Internal Medicine; Internal Medicine Gastroenterology; Legal Medicine; Nurse Practitioner Acute Care; Specialist; ADMIT Internal Medicine Interventional Cardiology
PROC: 0FB03ZX Excision of Liver, Percutaneous Approach, Diagnostic (ICD-10-PCS; principal; 2016-08-20 09:30)
PROC: 0W9G3ZZ Drainage of Peritoneal Cavity, Percutaneous Approach (ICD-10-PCS; principal; 2016-08-20 09:30)
PROC: 06H433Z Insertion of Infusion Device into Hepatic Vein, Percutaneous Approach (ICD-10-PCS; principal; 2016-08-20 09:30)
PROC: B51T1ZA Fluoroscopy of Portal and Splanchnic Veins using Low Osmolar Contrast, Guidance (ICD-10-PCS; principal; 2016-08-20 09:30)
DX: K74.60 Unspecified cirrhosis of liver (principal); N17.9 Acute kidney failure, unspecified; J44.1 Chronic obstructive pulmonary disease with (acute) exacerbation; R07.9 Chest pain, unspecified; E78.5 Hyperlipidemia, unspecified; E11.65 Type 2 diabetes mellitus with hyperglycemia; M48.00 Spinal stenosis, site unspecified; N40.0 Benign prostatic hyperplasia without lower urinary tract symptoms; G47.33 Obstructive sleep apnea (adult) (pediatric); E87.5 Hyperkalemia; I10 Essential (primary) hypertension; D69.6 Thrombocytopenia, unspecified; I86.8 Varicose veins of other specified sites; Z72.0 Tobacco use

== ENCOUNTER 2016-10-11 20:02 | Emergency (ER) | payer OTHER ==
[2016-08-09 10:04] VITALS: BMI 39.4
[~2016-10-11 20:02] MED LIST: ABILIFY2 MG PO; ABILIFY20 MG PO; BAYER CHEWABLE81 MG PO; CHRONULAC30 ML PO; CLOTRIM ANTIFUN15 GM TOPICAL; COREG 3.1253.125 MG PO; COZAAR100 MG PO; DEPAKOTE ER500 MG PO; DEPAKOTE SPRIN125 MG PO; DITROPAN X10 MG/BOTT PO; EFFEXOR XR150 MG PO; EUCERIN CREAM120 GM TOPICAL; FENOGLIDE40 MG PO; FLOVENT DISKU250 MCG INH; FUROSEMIDE20 MG PO; GABAPENTIN100 MG PO; GINGER500 MG PO; GLIPIZIDE10 MG PO; HYDROCODONE-APA1 TAB PO; LANTUS INSULIN10 ML SC; LATUDA40 MG PO; LIPITOR20 MG PO; METOPROLOL TAR100 M1 PO; MYCELEX TROCHE10 MG PO; NEURONTIN 400400 MG PO; NIZORAL 2 % CRE15 GM TOPICAL; OMEPRAZOLE20 M1 PO; PULMICORT FLEX90 MCG INH; PULMICORT0.25 MG/1 INH; SYSTANE 0.3-0.4%5 ML EACH EYE; VENTOLIN/PR2 MG/5 ML PO; ZESTRIL40 MG PO
[2016-10-11 21:08] LABS: BASOPHILS 0.5 % (0.0-2.0); EOSINOPHILS 1.2 % (0-7); HEMATOCRIT 53.9 % (42.0-54.0); HEMOGLOBIN 18.6 g/dL (13.5-17.5); IMMATURE GRANULOCYTES 0.4 % (0-5); LYMPHOCYTES 34.3 % (15-50); MCH 31.5 pg (26.0-34.0); MCHC 34.5 g/dL (31.0-37.0); MCV 91.2 fL (80.0-100.0); MEAN PLATELET VOLUME 11.6 fL (7.4-10.4); MONOCYTES 10.8 % (2-11); NEUTROPHILS 52.8 % (40-80); RBC 5.91 10x6/uL (4.20-6.10); RDW 14.6 % (11.5-14.5); WBC 8.1 10x3/uL (4.8-10.8)
[2016-10-11 21:10] LABS: PLATELET COUNT 72 10x3/uL (130-400)
[2016-10-11 21:28] LABS: ALBUMIN 3.2 g/dL (3.4-5.0); ALKALINE PHOSPHATASE 85 U/L (46-116); ALT (SGPT) 52 U/L (10-68); BILIRUBIN - TOTAL 1.21 mg/dL (0.2-1.3); CALC OSMOLALITY 275 mosm/kg (275-300); CALCIUM 8.1 mg/dL (8.5-10.1); CARBON DIOXIDE 25.2 mmol/L (21.0-32.0); CHLORIDE - SERUM 102 mmol/L (98-107); CREATININE - SERUM 1.4 mg/dL (0.6-1.3); GLUCOSE 147 mg/dL (74-106); POTASSIUM - SERUM 4.4 mmol/L (3.5-5.1); PROTEIN - SERUM 7.3 g/dL (6.4-8.2); SODIUM 136 mmol/L (136-145); UREA NITROGEN 15 mg/dL (7-18); eGFR NON AFRICAN AMERICAN 56 mL/min (90-120)
[2016-10-11 21:43] LABS: CREATINE KINASE 138 UL (21-232); PRO BNP 1523 pg/mL (0-125); TROPONIN-I 0.044 ng/mL (0.000-0.060)
[2016-10-11 21:46] LABS: PLATELET ESTIMATE DECREASED
== END 2016-10-12 05:00 | disposition home or self-care (01) ==
LOC: D.ER 20:02
PROVIDERS: Family Medicine
DX: J44.1 Chronic obstructive pulmonary disease with (acute) exacerbation (principal); K62.5 Hemorrhage of anus and rectum; G12.21 Amyotrophic lateral sclerosis; J44.9 Chronic obstructive pulmonary disease, unspecified; I50.9 Heart failure, unspecified; E11.9 Type 2 diabetes mellitus without complications; I24.9 Acute ischemic heart disease, unspecified; F17.200 Nicotine dependence, unspecified, uncomplicated

== ENCOUNTER 2016-11-11 11:38 | Emergency (ER) | payer OTHER ==
[2016-11-11 13:19] LABS: BASOPHILS 0.2 % (0-2); EOSINOPHILS 0.8 % (0-7); HEMATOCRIT 50.7 % (42.0-54.0); HEMOGLOBIN 16.9 g/dL (13.5-17.5); IMMATURE GRANULOCYTES 0.2 % (0-5); LYMPHOCYTES 21.9 % (15-50); MCH 30.3 pg (26.0-34.0); MCHC 33.3 g/dL (31.0-37.0); MONOCYTES 13.9 % (2-11); PLATELET COUNT 75 10x3/uL (130-400); RBC 5.57 10x6/uL (4.20-6.10); RDW 14.4 % (11.5-14.5); WBC 6.3 10x3/uL (4.8-10.8)
[2016-11-11 13:22] LABS: ANION GAP 13.2 mmol/L (8-16); BILIRUBIN - TOTAL 1.14 mg/dL (0.2-1.3); CALCIUM 8.9 mg/dL (8.5-10.1); CARBON DIOXIDE 25.9 mmol/L (21.0-32.0); CREATININE - SERUM 1.2 mg/dL (0.6-1.3); POTASSIUM - SERUM 4.1 mmol/L (3.5-5.1); PROTEIN - SERUM 7.6 g/dL (6.4-8.2)
[2016-11-11 13:29] LABS: TROPONIN-I 0.032 ng/mL (0.000-0.060)
[2016-11-11 13:38] LABS: PLATELET ESTIMATE DECREASED
== END 2016-11-11 20:25 | disposition home or self-care (01) ==
LOC: D.ER 11:38
PROVIDERS: Emergency Medicine
DX: J18.9 Pneumonia, unspecified organism (principal); J44.9 Chronic obstructive pulmonary disease, unspecified; I50.9 Heart failure, unspecified; E11.9 Type 2 diabetes mellitus without complications

== ENCOUNTER 2017-02-15 15:37 | Emergency (ER) | payer OTHER ==
[2016-08-09 10:04] VITALS: BMI 39.4
[2017-02-15 16:46] LABS: BASOPHILS 0.1 % (0-2); EOSINOPHILS 0.4 % (0-7); HEMATOCRIT 45.6 % (42.0-54.0); HEMOGLOBIN 15.5 g/dL (13.5-17.5); IMMATURE GRANULOCYTES 0.4 % (0-5); LYMPHOCYTES 8.7 % (15-50); MCH 29.6 pg (26.0-34.0); MEAN PLATELET VOLUME 10.6 fL (7.4-10.4); NEUTROPHILS 81.4 % (40-80); PLATELET COUNT 89 10x3/uL (130-400); RBC 5.24 10x6/uL (4.20-6.10); RDW 17.5 % (11.5-14.5); WBC 10.7 10x3/uL (4.8-10.8)
[2017-02-15 16:57] LABS: ALBUMIN 2.9 g/dL (3.4-5.0); ALKALINE PHOSPHATASE 196 U/L (46-116); ALT (SGPT) 45 U/L (10-68); BILIRUBIN - TOTAL 1.66 mg/dL (0.2-1.3); CALC OSMOLALITY 272 mosm/kg (275-300); CALCIUM 7.8 mg/dL (8.5-10.1); CARBON DIOXIDE 25.6 mmol/L (21.0-32.0); CHLORIDE - SERUM 99 mmol/L (98-107); GLUCOSE 148 mg/dL (74-106); PROTEIN - SERUM 7.5 g/dL (6.4-8.2); SODIUM 134 mmol/L (136-145); UREA NITROGEN 17 mg/dL (7-18); eGFR NON AFRICAN AMERICAN 82 mL/min (90-120)
[2017-02-15 17:01] LABS: MAGNESIUM - SERUM 1.1 mg/dL (1.8-2.4)
[2017-02-15 17:36] LABS: APPEARANCE CLEAR (CLEAR); COLOR YELLOW (YELLOW); LEUKOCYTE ESTERASE NEGATIVE (NEGATIVE); NITRITE NEGATIVE (NEGATIVE); PROTEIN TRACE mg/dL (NEGATIVE)
[2017-02-15 17:37] LABS: BILIRUBIN NEGATIVE (NEGATIVE); GLUCOSE NEGATIVE (NEGATIVE); KETONE NEGATIVE (NEGATIVE); UROBILINOGEN NORMAL (NORMAL)
[2017-02-15 17:38] LABS: PLATELET ESTIMATE DECREASED
[2017-02-15 17:40] LABS: CREATINE KINASE 152 UL (21-232); PRO BNP 2793 pg/mL (0-125)
[2017-02-15 17:43] LABS: VALPROIC ACID (DEPAKOTE) < 50.0 ug/mL (50.0-100.0)
== END 2017-02-16 00:50 | disposition short-term general hospital (02) ==
LOC: D.ER 15:37
PROVIDERS: Emergency Medicine
DX: R09.02 Hypoxemia (principal); L03.116 Cellulitis of left lower limb; I50.9 Heart failure, unspecified; E72.20 Disorder of urea cycle metabolism, unspecified; Z85.038 Personal history of other malignant neoplasm of large intestine; E66.9 Obesity, unspecified; E11.9 Type 2 diabetes mellitus without complications; J44.9 Chronic obstructive pulmonary disease, unspecified; J45.909 Unspecified asthma, uncomplicated; G47.33 Obstructive sleep apnea (adult) (pediatric); R50.9 Fever, unspecified; R53.81 Other malaise; R05 Cough; F17.200 Nicotine dependence, unspecified, uncomplicated; R00.0 Tachycardia, unspecified; I45.10 Unspecified right bundle-branch block

== ENCOUNTER 2018-05-13 03:37 | Emergency (ER) | payer OTHER ==
[~2018-05-13] VITALS: Ht 180.3 cm; Wt 107.3 kg
[2018-05-13 03:38] VITALS: Ht 180.3 cm; Wt 107.3 kg
[2018-05-13 04:01] LABS: BASOPHILS 0.2 % (0-2); HEMATOCRIT 39.7 % (42.0-54.0); HEMOGLOBIN 13.1 g/dL (13.5-17.5); IMMATURE GRANULOCYTES 0.3 % (0-5); LYMPHOCYTES 11.5 % (15-50); MEAN PLATELET VOLUME 9.1 fL (7.4-10.4); MONOCYTES 14.1 % (2-11); NEUTROPHILS 72.9 % (40-80); RBC 4.51 10x6/uL (4.20-6.10); RDW 15.1 % (11.5-14.5); WBC 9.2 10x3/uL (4.8-10.8)
[2018-05-13 04:04] LABS: PLATELET COUNT 190 10x3/uL (130-400)
[2018-05-13 04:25] LABS: ALBUMIN 2.4 g/dL (3.4-5.0); ALKALINE PHOSPHATASE 207 U/L (46-116); ALT (SGPT) 22 U/L (10-68); BILIRUBIN - TOTAL 0.75 mg/dL (0.2-1.3); CALC OSMOLALITY 268 mosm/kg (275-300); CALCIUM 8.4 mg/dL (8.5-10.1); CARBON DIOXIDE 27.4 mmol/L (21.0-32.0); CHLORIDE - SERUM 94 mmol/L (98-107); GLUCOSE 162 mg/dL (74-106); PROTEIN - SERUM 7.4 g/dL (6.4-8.2); SODIUM 131 mmol/L (136-145); UREA NITROGEN 17 mg/dL (7-18); eGFR NON AFRICAN AMERICAN 82 mL/min (90-120)
[2018-05-13 05:05] VITALS: BP 115/68
== END 2018-05-13 05:05 | disposition other institution (70) ==
LOC: D.ER 03:37
PROVIDERS: Emergency Medicine
DX: E87.1 Hypo-osmolality and hyponatremia (principal); E86.0 Dehydration; R09.02 Hypoxemia; G89.18 Other acute postprocedural pain; E11.8 Type 2 diabetes mellitus with unspecified complications; Z79.4 Long term (current) use of insulin; I50.9 Heart failure, unspecified; J44.9 Chronic obstructive pulmonary disease, unspecified; F17.200 Nicotine dependence, unspecified, uncomplicated

== ENCOUNTER 2018-05-13 07:19 | Emergency (ER) | payer OTHER ==
[~2018-05-13] VITALS: Ht 180.3 cm; Wt 90.9 kg
[2018-05-13 07:20] VITALS: Ht 180.3 cm; Wt 90.9 kg
[2018-05-13 09:37] VITALS: BP 114/60
== END 2018-05-13 09:38 | disposition home or self-care (01) ==
LOC: D.ER 07:19
DX: R09.02 Hypoxemia (principal); J44.9 Chronic obstructive pulmonary disease, unspecified; F17.200 Nicotine dependence, unspecified, uncomplicated; E11.9 Type 2 diabetes mellitus without complications; I50.9 Heart failure, unspecified

== ENCOUNTER 2018-06-11 11:07 | Inpatient (IN) | payer MEDICARE, OTHER ==
[~2018-06-11] VITALS: Ht 180.3 cm; Wt 106.6 kg
--- NOTE | ~2018-06-11 | MORECARE ---
CASE MANAGEMENT DISCHARGE SUMMARY PATIENT: JOE SANCHEZ UNIT: [id number] ADM DATE: 06/11/18 AGE: 58 : 62 SEX: M ROOM/BED: D.2316 AUTHOR: KALLIE SALOMON PHYSICIAN: REFERRING PHYSICIAN: YASMANI IBRAHIM MD DATE OF SERVICE: 06/20/18 Discharge Plan Patient Name: JOE SANCHEZ Facility: [facility]:[place] : 1960 Planned Disposition: Anticipated Discharge Date: Discharge Date: 06/20/2018 Expected LOS: Initial Reviewer: [email or web address] Initial Review Date: 06/19/2018 Generated: 06/20/18 11:35 am Comments DCP- Discharge Planning Updated by [email or web address]: Sara Her on 06/12/18 11:[address] Spoke with Corrie at [facility] #[phone] to report patients inpatient admission. He is being transferred to ICU, Corrie states when he is more stable, to call back and they can start the transfer process if the family wishes. CM to continue to follow and assist with discharge planning/needs. Last DP export: 06/19/18 6:31 p Patient Name: JOE SANCHEZ Page [id number] at 1035 All edits/amendments must be made on the electronic document DICTATION DATE: 06/20/18 1035 SONAR TECHNICIAN: FERMIN 06/20/18 1035 RPT#: [id number] DC DATE:06/20/18 STATUS: DIS IN [facility] [address] [place] [address] END OF REPORT
--- NOTE | ~2018-06-11 | EC ---
PATIENT:JOE SANCHEZ DATE OF SERVICE: 06/11/18 SEX: M MEDICAL RECORD: [id number] DATE OF : 62 LOCATION:[place] [address] AGE OF PATIENT: 58 ADMISSION DATE: 06/11/18 REFERRING PHYSICIAN: INTERPRETING PHYSICIAN: LIAM ROMERO MD ECHOCARDIOGRAM REPORT ECHO CHARGES 4 ECHO COMPLETE Date: 06/13/18 CLINICAL DIAGNOSIS: TACHYCARDIA ECHOCARDIOGRAPHIC MEASUREMENTS (adult normal given) AC root (d.<3.7cm) 3.7 cm LV Septum d (<1.2 cm> 1.6 cm Valve Excursion 1.2 cm LV Septum (systole) 1.7 cm Left Atria (s.<4.0cm> 4.0 cm LVPW d(<1.2cm) 1.5 cm RV (d.<2.3cm) 5.5 cm LVPW (sytole) 1.7 cm LV diastole(<5.6CM) 4.5 cm MV E-F(>70mm/sec) cm LV systole 3.0 cm LVOT Diameter 2.0 cm MV exc.(>10mm) 2.2 cm Est.ejection fraction (50-75%) % DOPPLER: LVIT cm/sec A 80.0 cm/sec E 60.0 cm/sec LA cm/sec RVSP 28 mmHg LVOT 99 cm/sec AOP1/2T m/s Asc. Ao 97 cm/sec RVOT 60 cm/sec RA cm/sec PA 112 cm/sec AV Gradient Peak 3.79 mmHg AV Mean 2.08 mmHg AV Area 2.7 cm MV Gradient Peak 3.29 mmHg MV Mean 1.09 mmHg MV Area cm COMMENTS: SOL TRACED AT 1.8CM Locker Room Attendant: Vinicio MANZO Harvest Worker Fruit: Nupur Romero TAPE# PACS Pericardial Effusion N DATE OF SERVICE: 06/13/2018 FINDINGS: 1. Left ventricular chamber size is within normal limits. Left ventricular systolic function is normal. Overall ejection fraction is estimated at 55% to 60%. 2. Left atrium is mildly dilated. Right atrium and right ventricle chamber sizes are moderately dilated. 3. 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 The remaining valvular structures have ECHOCARDIOGRAM REPORT [id number] JOE SANCHEZ normal structure and motion. 4. Doppler interrogation else pandya reveals mild tricuspid regurgitation. No other valvular insufficiency or stenosis. Pulmonary systolic pressure is normal, estimated at 28 mmHg. 5. No evidence of pericardial effusion or left ventricular thrombus. OVERALL IMPRESSION: Lesion on aortic valve compatible with endocarditis. TRANSINT:[id number] Voice Confirmation ID: [id number] DOCUMENT ID: [id number] LIAM ROMERO MD at 1718 CC: [id number] DICTATION DATE: 06/13/18 162 DIRECTOR [employer]LOBAL [employer] AFFAIRS: 06/13/188 ADM IN [place] [id number] [place] [id number]
--- NOTE | ~2018-06-11 | MORECARE ---
CASE MANAGEMENT DISCHARGE SUMMARY PATIENT: JOE SANCHEZ ALLAN UNIT: [id number] ADM DATE: 06/11/18 AGE: 58 : 62 SEX: M ROOM/BED: D.2316 AUTHOR: KALLIE SALOMON PHYSICIAN: REFERRING PHYSICIAN: YASMANI IBRAHIM MD DATE OF SERVICE: 06/19/18 Discharge Plan Patient Name: JOE SANCHEZ Facility: [facility]:[place] : 1960 Planned Disposition: Anticipated Discharge Date: Discharge Date: Expected LOS: Initial Reviewer: [email or web address] Initial Review Date: 06/19/2018 Generated: 06/19/18 8:30 pm Comments DCP- Discharge Planning Updated by [email or web address]: Sara Her on 06/12/18 11:[address] Spoke with Corrie at [facility] [place] #[phone] to report patients inpatient admission. He is being transferred to ICU, Corrie states when he is more stable, to call back and they can start the transfer process if the family wishes. CM to continue to follow and assist with discharge planning/needs. Patient Name: JOE SANCHEZ Page [id number] at 1931 All edits/amendments must be made on the electronic document DICTATION DATE: 06/19/181929 FILM BOOKER: FERMIN 06/19/181929 RPT#: [id number] DC DATE: STATUS: ADM IN [facility] [address] [place] [address] END OF REPORT
[2018-06-11 11:35] LABS: BASOPHILS 0.1 % (0-2); EOSINOPHILS 0.1 % (0-7); HEMATOCRIT 46.5 % (42.0-54.0); IMMATURE GRANULOCYTES 0.4 % (0-5); LYMPHOCYTES 11.6 % (15-50); MCH 27.4 pg (26.0-34.0); MCHC 34.4 g/dL (31.0-37.0); MCV 79.5 fL (80.0-100.0); MEAN PLATELET VOLUME 9.1 fL (7.4-10.4); MONOCYTES 10.5 % (2-11); NEUTROPHILS 77.3 % (40-80); RBC 5.85 10x6/uL (4.20-6.10); RDW 16.8 % (11.5-14.5); WBC 13.4 10x3/uL (4.8-10.8)
[2018-06-11 11:40] LABS: PLATELET COUNT 324 10x3/uL (130-400)
[2018-06-11 11:51] LABS: APTT 34.2 SECONDS (22.8-39.4); INR 1.46 (0.85-1.17); PROTIME 17.2 SECONDS (11.6-15.0)
[2018-06-11 11:55] LABS: ALKALINE PHOSPHATASE 307 U/L (46-116); ALT (SGPT) 24 U/L (10-68); BILIRUBIN - TOTAL 0.92 mg/dL (0.2-1.3); CALC OSMOLALITY 254 mosm/kg (275-300); CALCIUM 8.7 mg/dL (8.5-10.1); CARBON DIOXIDE 25.3 mmol/L (21.0-32.0); CHLORIDE - SERUM 91 mmol/L (98-107); CREATININE - SERUM 0.8 mg/dL (0.6-1.3); GLUCOSE 150 mg/dL (74-106); POTASSIUM - SERUM 4.1 mmol/L (3.5-5.1); PROTEIN - SERUM 8.6 g/dL (6.4-8.2); SODIUM 125 mmol/L (136-145); UREA NITROGEN 13 mg/dL (7-18); eGFR NON AFRICAN AMERICAN > 90 mL/min (90-120)
[2018-06-11 12:06] LABS: CKMB 0.3 U/L (0.0-3.6); CREATINE KINASE 44 UL (21-232); MAGNESIUM - SERUM 1.4 mg/dL (1.8-2.4); TROPONIN-I 0.042 ng/mL (0.000-0.060)
[2018-06-11 12:20] LABS: APPEARANCE CLEAR (CLEAR); COLOR DK YELLOW (YELLOW); NITRITE NEGATIVE (NEGATIVE)
[2018-06-11 12:21] LABS: BILIRUBIN NEGATIVE (NEGATIVE); GLUCOSE NEGATIVE (NEGATIVE); KETONE NEGATIVE (NEGATIVE); PROTEIN 3+ mg/dL (NEGATIVE)
[2018-06-11 12:23] LABS: AMORPHOUS SEDIMENT <1+ /lpf (NONE SEEN); BACTERIA FEW /hpf (NONE SEEN); EPITHELIAL CELLS 0-5 /hpf (0-5); RED CELLS - URINE 0-5 /hpf (0-5); WHITE CELLS - URINE 0-5 /hpf (0-5)
[2018-06-11 13:54] VITALS: BP 189/99
[2018-06-11 14:31] VITALS: BP 165/99
[2018-06-11 15:31] VITALS: BP 165/106
[2018-06-11 18:20] VITALS: BMI 33.5
[2018-06-12] VITALS (14 sets, daily range): BP systolic 126–173; BP diastolic 75–111; BMI 33.4
[2018-06-12 06:05] LABS: BASOPHILS 0.1 % (0-2); EOSINOPHILS 0 % (0-7); HEMOGLOBIN 14.3 g/dL (13.5-17.5); IMMATURE GRANULOCYTES 0.2 % (0-5); LYMPHOCYTES 11.6 % (15-50); MCH 26.8 pg (26.0-34.0); MCHC 33.3 g/dL (31.0-37.0); MCV 80.5 fL (80.0-100.0); MEAN PLATELET VOLUME 8.9 fL (7.4-10.4); MONOCYTES 13.5 % (2-11); NEUTROPHILS 74.6 % (40-80); RBC 5.34 10x6/uL (4.20-6.10); RDW 16.9 % (11.5-14.5); WBC 12.3 10x3/uL (4.8-10.8)
[2018-06-12 06:14] LABS: PLATELET COUNT 254 10x3/uL (130-400)
[2018-06-12 06:24] LABS: ALBUMIN 1.7 g/dL (3.4-5.0); ALKALINE PHOSPHATASE 241 U/L (46-116); ALT (SGPT) 18 U/L (10-68); CALC OSMOLALITY 261 mosm/kg (275-300); CALCIUM 8.3 mg/dL (8.5-10.1); CARBON DIOXIDE 24.7 mmol/L (21.0-32.0); CHLORIDE - SERUM 95 mmol/L (98-107); CREATININE - SERUM 0.7 mg/dL (0.6-1.3); GLUCOSE 169 mg/dL (74-106); MAGNESIUM - SERUM 1.6 mg/dL (1.8-2.4); POTASSIUM - SERUM 3.7 mmol/L (3.5-5.1); PROTEIN - SERUM 7.6 g/dL (6.4-8.2); SODIUM 128 mmol/L (136-145); UREA NITROGEN 16 mg/dL (7-18); eGFR NON AFRICAN AMERICAN > 90 mL/min (90-120)
[2018-06-12 16:48] LABS: CKMB 0.8 U/L (0.0-3.6); CREATINE KINASE 75 UL (21-232)
[2018-06-12 16:50] LABS: TROPONIN-I 0.268 ng/mL (0.000-0.060)
[2018-06-13] VITALS (24 sets, daily range): BP systolic 84–193; BP diastolic 61–125; Ht 180.3 cm; Wt 106.6 kg
[2018-06-13 04:38] LABS: BASOPHILS 0.1 % (0-2); EOSINOPHILS 0 % (0-7); HEMATOCRIT 43.8 % (42.0-54.0); HEMOGLOBIN 14.5 g/dL (13.5-17.5); IMMATURE GRANULOCYTES 0.3 % (0-5); MCH 26.9 pg (26.0-34.0); MCHC 33.1 g/dL (31.0-37.0); MCV 81.3 fL (80.0-100.0); MEAN PLATELET VOLUME 9.2 fL (7.4-10.4); MONOCYTES 13.6 % (2-11); PLATELET COUNT 274 10x3/uL (130-400); RBC 5.39 10x6/uL (4.20-6.10); RDW 17.3 % (11.5-14.5); WBC 14.3 10x3/uL (4.8-10.8)
[2018-06-13 05:10] LABS: ALBUMIN 1.8 g/dL (3.4-5.0); ALKALINE PHOSPHATASE 225 U/L (46-116); BILIRUBIN - TOTAL 0.73 mg/dL (0.2-1.3); CALCIUM 8.1 mg/dL (8.5-10.1); CARBON DIOXIDE 23.2 mmol/L (21.0-32.0); CHLORIDE - SERUM 97 mmol/L (98-107); CREATININE - SERUM 0.8 mg/dL (0.6-1.3); GLUCOSE 160 mg/dL (74-106); POTASSIUM - SERUM 3.3 mmol/L (3.5-5.1); PROTEIN - SERUM 7.8 g/dL (6.4-8.2); SODIUM 129 mmol/L (136-145); eGFR NON AFRICAN AMERICAN > 90 mL/min (90-120)
[2018-06-13 05:21] LABS: ALT (SGPT) 25 U/L (10-68); CALC OSMOLALITY 264 mosm/kg (275-300); UREA NITROGEN 21 mg/dL (7-18)
[2018-06-14] VITALS (41 sets, daily range): BP systolic 75–147; BP diastolic 51–112
[2018-06-14 04:32] LABS: BASOPHILS 0.1 % (0-2); EOSINOPHILS 0 % (0-7); HEMATOCRIT 48.9 % (42.0-54.0); HEMOGLOBIN 15.5 g/dL (13.5-17.5); IMMATURE GRANULOCYTES 0.4 % (0-5); LYMPHOCYTES 6.5 % (15-50); MCH 26.5 pg (26.0-34.0); MCHC 31.7 g/dL (31.0-37.0); MEAN PLATELET VOLUME 9.4 fL (7.4-10.4); MONOCYTES 4.9 % (2-11); NEUTROPHILS 88.1 % (40-80); PLATELET COUNT 237 10x3/uL (130-400); RBC 5.86 10x6/uL (4.20-6.10); RDW 17.2 % (11.5-14.5); WBC 13.2 10x3/uL (4.8-10.8)
[2018-06-14 04:45] LABS: MCV 83.4 fL (80.0-100.0)
[2018-06-14 04:52] LABS: ALBUMIN 1.8 g/dL (3.4-5.0); ANION GAP 14.7 mmol/L (8-16); BILIRUBIN - TOTAL 0.77 mg/dL (0.2-1.3); CALCIUM 8.2 mg/dL (8.5-10.1); CARBON DIOXIDE 25.4 mmol/L (21.0-32.0); CREATININE - SERUM 1.4 mg/dL (0.6-1.3); POTASSIUM - SERUM 3.1 mmol/L (3.5-5.1); PROTEIN - SERUM 7.7 g/dL (6.4-8.2)
[2018-06-15] VITALS (83 sets, daily range): BP systolic 97–159; BP diastolic 59–89
[2018-06-15 05:19] LABS: ALBUMIN 1.5 g/dL (3.4-5.0); ANION GAP 16.3 mmol/L (8-16); BILIRUBIN - TOTAL 0.9 mg/dL (0.2-1.3); CARBON DIOXIDE 21.5 mmol/L (21.0-32.0); PROTEIN - SERUM 7.3 g/dL (6.4-8.2)
[2018-06-15 05:20] LABS: CREATININE - SERUM 2.3 mg/dL (0.6-1.3); POTASSIUM - SERUM 3.8 mmol/L (3.5-5.1)
[2018-06-15 05:36] LABS: HEMATOCRIT 42.2 % (42.0-54.0); HEMOGLOBIN 13.5 g/dL (13.5-17.5); MCH 26.5 pg (26.0-34.0); MCV 82.7 fL (80.0-100.0); MEAN PLATELET VOLUME 9.9 fL (7.4-10.4); PLATELET COUNT 217 10x3/uL (130-400); RDW 17.8 % (11.5-14.5); WBC 21.9 10x3/uL (4.8-10.8)
[2018-06-15 06:33] LABS: LYMPHOCYTES 10 % (15-50); MONOCYTES 3 % (2-11); NEUTROPHILS 79 % (40-80); PLATELET ESTIMATE NORMAL
[2018-06-16] VITALS (42 sets, daily range): BP systolic 82–141; BP diastolic 45–102
[2018-06-16 04:36] LABS: BASOPHILS 0.1 % (0-2); EOSINOPHILS 0 % (0-7); HEMATOCRIT 37.4 % (42.0-54.0); IMMATURE GRANULOCYTES 0.7 % (0-5); LYMPHOCYTES 5.2 % (15-50); MCH 26.3 pg (26.0-34.0); MCHC 32.1 g/dL (31.0-37.0); MEAN PLATELET VOLUME 9.6 fL (7.4-10.4); MONOCYTES 6.5 % (2-11); NEUTROPHILS 87.5 % (40-80); RBC 4.56 10x6/uL (4.20-6.10); RDW 17.8 % (11.5-14.5); WBC 18.9 10x3/uL (4.8-10.8)
[2018-06-16 04:37] LABS: PLATELET COUNT 157 10x3/uL (130-400)
[2018-06-16 04:51] LABS: ALBUMIN 1.4 g/dL (3.4-5.0); BILIRUBIN - TOTAL 0.66 mg/dL (0.2-1.3); CALCIUM 7.8 mg/dL (8.5-10.1); CARBON DIOXIDE 20.8 mmol/L (21.0-32.0); CREATININE - SERUM 2.8 mg/dL (0.6-1.3); POTASSIUM - SERUM 3.8 mmol/L (3.5-5.1); PROTEIN - SERUM 7.1 g/dL (6.4-8.2); VANCOMYCIN - RANDOM 27.4 ug/mL (10.0-20.0)
[2018-06-16 04:53] LABS: INR 1.45 (0.85-1.17)
[2018-06-16 16:26] LABS: APPEARANCE HAZY (CLEAR); BILIRUBIN NEGATIVE (NEGATIVE); COLOR YELLOW (YELLOW); GLUCOSE NEGATIVE (NEGATIVE); KETONE NEGATIVE (NEGATIVE); NITRITE NEGATIVE (NEGATIVE); PROTEIN TRACE mg/dL (NEGATIVE); UROBILINOGEN NORMAL (NORMAL)
[2018-06-16 16:27] LABS: BACTERIA MODERATE /hpf (NONE SEEN)
[2018-06-17] VITALS (31 sets, daily range): BP systolic 86–147; BP diastolic 57–80
[2018-06-17 05:30] LABS: BASOPHILS 0.1 % (0-2); EOSINOPHILS 0.1 % (0-7); HEMATOCRIT 31.9 % (42.0-54.0); IMMATURE GRANULOCYTES 0.6 % (0-5); LYMPHOCYTES 6.8 % (15-50); MCHC 31.3 g/dL (31.0-37.0); MCV 82.9 fL (80.0-100.0); MEAN PLATELET VOLUME 9.7 fL (7.4-10.4); NEUTROPHILS 83.4 % (40-80); PLATELET COUNT 137 10x3/uL (130-400); RBC 3.85 10x6/uL (4.20-6.10); WBC 14.5 10x3/uL (4.8-10.8)
[2018-06-17 05:46] LABS: ALBUMIN 1.3 g/dL (3.4-5.0); ANION GAP 17.6 mmol/L (8-16); BILIRUBIN - TOTAL 0.56 mg/dL (0.2-1.3); CALCIUM 7.6 mg/dL (8.5-10.1); CARBON DIOXIDE 20.3 mmol/L (21.0-32.0); POTASSIUM - SERUM 3.9 mmol/L (3.5-5.1); PROTEIN - SERUM 6.5 g/dL (6.4-8.2); VANCOMYCIN - RANDOM 21.4 ug/mL (10.0-20.0)
[2018-06-18] VITALS (24 sets, daily range): BP systolic 92–149; BP diastolic 50–80
[2018-06-18 05:49] LABS: BASOPHILS 0.1 % (0-2); EOSINOPHILS 0.3 % (0-7); HEMATOCRIT 36.5 % (42.0-54.0); HEMOGLOBIN 11.6 g/dL (13.5-17.5); IMMATURE GRANULOCYTES 0.8 % (0-5); LYMPHOCYTES 6.9 % (15-50); MCH 26.4 pg (26.0-34.0); MCHC 31.8 g/dL (31.0-37.0); MONOCYTES 12.2 % (2-11); NEUTROPHILS 79.7 % (40-80); PLATELET COUNT 155 10x3/uL (130-400); RDW 18.2 % (11.5-14.5)
[2018-06-18 06:07] LABS: ALBUMIN 1.5 g/dL (3.4-5.0); ANION GAP 21.4 mmol/L (8-16); BILIRUBIN - TOTAL 0.56 mg/dL (0.2-1.3); CALCIUM 7.6 mg/dL (8.5-10.1); CARBON DIOXIDE 16.4 mmol/L (21.0-32.0); CREATININE - SERUM 4.8 mg/dL (0.6-1.3); POTASSIUM - SERUM 3.8 mmol/L (3.5-5.1); PROTEIN - SERUM 7.1 g/dL (6.4-8.2); VANCOMYCIN - RANDOM 21.6 ug/mL (10.0-20.0)
[2018-06-19] VITALS (23 sets, daily range): BP systolic 97–145; BP diastolic 62–80
[2018-06-19 05:54] LABS: BASOPHILS 0.1 % (0-2); EOSINOPHILS 0.5 % (0-7); HEMATOCRIT 37.8 % (42.0-54.0); HEMOGLOBIN 11.3 g/dL (13.5-17.5); LYMPHOCYTES 4.1 % (15-50); MCHC 29.9 g/dL (31.0-37.0); MEAN PLATELET VOLUME 10.3 fL (7.4-10.4); MONOCYTES 7.1 % (2-11); NEUTROPHILS 87.2 % (40-80); PLATELET COUNT 133 10x3/uL (130-400); RBC 4.34 10x6/uL (4.20-6.10); RDW 18.1 % (11.5-14.5); WBC 14.7 10x3/uL (4.8-10.8)
[2018-06-19 06:00] LABS: MCV 87.1 fL (80.0-100.0)
[2018-06-19 06:50] LABS: ALBUMIN 1.5 g/dL (3.4-5.0); ANION GAP 23.9 mmol/L (8-16); BILIRUBIN - TOTAL 0.54 mg/dL (0.2-1.3); CALCIUM 7.4 mg/dL (8.5-10.1); CARBON DIOXIDE 16.4 mmol/L (21.0-32.0); POTASSIUM - SERUM 4.3 mmol/L (3.5-5.1); PROTEIN - SERUM 6.3 g/dL (6.4-8.2); VANCOMYCIN - RANDOM 15.6 ug/mL (10.0-20.0)
[2018-06-20] VITALS (7 sets, daily range): BP systolic 124–141; BP diastolic 66–77
[2018-06-20 05:25] LABS: BASOPHILS 0.1 % (0-2); EOSINOPHILS 1.7 % (0-7); HEMATOCRIT 34.2 % (42.0-54.0); HEMOGLOBIN 10.4 g/dL (13.5-17.5); IMMATURE GRANULOCYTES 0.7 % (0-5); LYMPHOCYTES 6.9 % (15-50); MCH 25.7 pg (26.0-34.0); MCHC 30.4 g/dL (31.0-37.0); MEAN PLATELET VOLUME 10.8 fL (7.4-10.4); MONOCYTES 7.1 % (2-11); NEUTROPHILS 83.5 % (40-80); PLATELET COUNT 109 10x3/uL (130-400); RBC 4.05 10x6/uL (4.20-6.10); RDW 18.2 % (11.5-14.5)
[2018-06-20 05:33] LABS: MCV 84.4 fL (80.0-100.0)
[2018-06-20 06:31] LABS: ALBUMIN 1.3 g/dL (3.4-5.0); ANION GAP 20.7 mmol/L (8-16); BILIRUBIN - TOTAL 0.45 mg/dL (0.2-1.3); CREATININE - SERUM 5.4 mg/dL (0.6-1.3); MAGNESIUM - SERUM 2.1 mg/dL (1.8-2.4); PHOSPHOROUS 5.6 mg/dL (2.5-4.9); POTASSIUM - SERUM 3.7 mmol/L (3.5-5.1); PROTEIN - SERUM 5.8 g/dL (6.4-8.2)
[2018-06-20 07:03] LABS: CALCIUM 7.2 mg/dL (8.5-10.1)
== END 2018-06-20 09:12 | disposition short-term general hospital (02) | DRG 559 ==
LOC: D.ER 11:07 → D.EDHOLD 14:01 → D.MS 14:01 → D.ICU 14:01 → D.MS 16:21 → D.ICU 06-12 12:50
PROVIDERS: Family Medicine; Internal Medicine Gastroenterology; Internal Medicine Nephrology; Internal Medicine Pulmonary Disease
PROC: 5A1955Z Respiratory Ventilation, Greater than 96 Consecutive Hours (ICD-10-PCS; principal; 2018-06-11)
PROC: 0BH17EZ Insertion of Endotracheal Airway into Trachea, Via Natural or Artificial Opening (ICD-10-PCS; 2018-06-11)
PROC: 05HM33Z Insertion of Infusion Device into Right Internal Jugular Vein, Percutaneous Approach (ICD-10-PCS; 2018-06-14)
DX: T84.63XA Infection and inflammatory reaction due to internal fixation device of spine, initial encounter (principal); A41.52 Sepsis due to Pseudomonas; K72.00 Acute and subacute hepatic failure without coma; I21.A1 Myocardial infarction type 2; J18.9 Pneumonia, unspecified organism; I33.0 Acute and subacute infective endocarditis; J96.21 Acute and chronic respiratory failure with hypoxia; E87.3 Alkalosis; E87.1 Hypo-osmolality and hyponatremia; D68.9 Coagulation defect, unspecified; A04.72 Enterocolitis due to Clostridium difficile, not specified as recurrent; R57.9 Shock, unspecified; E87.2 Acidosis; N17.9 Acute kidney failure, unspecified; G93.40 Encephalopathy, unspecified; E66.01 Morbid (severe) obesity due to excess calories; E11.9 Type 2 diabetes mellitus without complications; J44.9 Chronic obstructive pulmonary disease, unspecified; K74.60 Unspecified cirrhosis of liver; G40.909 Epilepsy, unspecified, not intractable, without status epilepticus; I10 Essential (primary) hypertension; R80.9 Proteinuria, unspecified; E83.42 Hypomagnesemia; D72.829 Elevated white blood cell count, unspecified; G47.33 Obstructive sleep apnea (adult) (pediatric); L89.159 Pressure ulcer of sacral region, unspecified stage; D64.9 Anemia, unspecified; M46.45 Discitis, unspecified, thoracolumbar region